=== PATIENT | female | born 1995 | race Caucasian/White ===

== ENCOUNTER 2020-09-24 21:50 | Emergency (ER) | payer OTHER, SELFPAY ==
[2020-09-24 22:15] VITALS: BP 141/93; PULSE 81; RESP 20; TEMP 36.7; O2SAT 98
[2020-09-24] MEDS: SODIUM CHLORIDE 0.9% IV 1,000 ML 999 ML IV CONT (22:45)
[2020-09-24] MEDS: ONDANSETRON INJ 4 MG/2 ML VIAL IV PUSH (22:46)
[2020-09-24] MEDS: KETOROLAC 30 MG/ML VIAL (*BKC) IV PUSH (22:46)
--- NOTE | 2020-09-24 22:55 | ED.DIZZY ---
HPI - Dizziness General Chief Complaint: Dizziness Stated Complaint: dizzy, light headed, nausea, sleepy,upper abd pain Source: patient Mode of arrival: ambulatory Limitations: no limitations History of Present Illness HPI Narrative: this is a 25-year-old female with no known past medical history per dizziness headache nasal congestion with episode of nausea vomiting with suprapubic tenderness with no dysuria no hematuria no flank pain does have some sinus congestion with some some weakness dizziness and no chest pain no audible wheezing does have some achiness that started at about 1 this afternoon. Currently no fever chills. MD elicited complaint: dizziness Onset (ago): hour(s) Timing: gradual onset Severity: moderate Description: sense of movement History of similar symptoms: No Exacerbating factors: nothing Relieving factors: nothing Associated symptoms: nausea, vomiting, chills and other ( Headache) Related Data Allergies Allergy/AdvReac Type Severity Reaction Status Date / Time No Known Allergies Allergy Verified 09/24/20 22:28 Review of Systems Review of Systems: All systems reviewed & are unremarkable except as noted in HPI and below PMFSH Past Medical History Medical History Patient denies medical problems Social History Social History Gender identity (if verbalized by the patient): Female Exam Const: General: no acute distress and alert Orientation/consciousness: patient oriented x3 HENMT: Head: normal to inspection Eyes: Conjunctivae: conjunctivae normal Pupils: Equal, round and reactive pupils present Neck: Neck: normal visual inspection, no lymphadenopathy and no meningeal signs Chest: Chest palpation & inspection: normal inspection of the chest Resp: Effort & Inspection: normal respiratory effort Auscultation: clear to auscultation bilaterally Cardio: Rate: regular rate Rhythm: regular rhythm GI: Auscultation: normal bowel sounds : General: Yes no CVA tenderness Back/Spine/Pelvis: Back: no CVA tenderness Skin: General skin exam: normal color Rashes: no rashes Neuro: General: patient oriented x3 and moves all extremities Extrem: General: normal to inspection Psych: Mental Status: mental status grossly normal Affect: normal affect Course Course Emergency Course: patient receiving IV fluids and IV Zofran and has some improvement in her discomfort. After Vital Signs Vital signs: Vital Signs Temperature 36.7 C 04/01/21 22:15 Pulse Rate 81 09/24/20 22:15 Respiratory Rate 20 09/24/20 22:15 Blood Pressure 141/93 H 09/24/20 22:15 Pulse Oximetry 98 09/24/20 22:15 Temperature 36.7 C 09/24/20 22:15 Pulse Rate 81 09/24/20 22:15 Respiratory Rate 20 09/24/20 22:15 Blood Pressure 141/93 H 09/24/20 22:15 Pulse Oximetry 98 09/24/20 22:15 Critical Care Time Critical Care Time Critical Care Time: No Discharge Plan Discharge Clinical Impression: Gastroenteritis, Acute viral syndrome, Acute hypokalemia Patient Disposition: Home, Self-Care Condition: Stable Instructions: Antibiotic Form, Hypokalemia (ED), Gastroenteritis (ED), Acute Nausea and Vomiting (ED) Additional Instructions: take medicine as prescribed and follow-up with primary care physician for further evaluation and treatment. Prescriptions: New potassium chloride 20 mEq tablet extended release 20 meq PO BID 4 Days Qty: 8 RF: 0 Follow-up/Referrals: Duc,MD Bentley [Primary Care Provider] - Time of Disposition: 23:30
[2020-09-24 22:57] LABS: Add Urine Microscopic? NO; Appearance Urine Clear (Clear); Bilirubin Urine Negative (Negative); Blood Urine Negative (Negative); Color Urine Yellow (Yellow); Glucose Urine UA Negative (Negative); Ketones Urine Negative (Negative); Leukocyte Esterase Ur Negative (Negative); Nitrate Urine Negative (Negative); Protein Urine Negative (Negative); Urobilinogen Urine 0.2 mg/dL (0.2-1.0); pH Urine 5.5 (5.0-8.0)
[2020-09-24 23:01] LABS: Pregnancy On Board Control Positive; Urine Pregnancy Test Negative
[2020-09-24 23:11] LABS: Basophils Absolute Auto 0.03 K/mm3 (0.00-0.10); Basophils Percent Auto 0.4 % (0.0-1.0); Eosinophils Absolute Auto 0.09 K/mm3 (0.02-0.50); Eosinophils Percent Auto 1.3 % (1.0-6.0); Hematocrit 37.2 % (35.0-49.0); Hemoglobin 11.7 g/dL (12.0-15.0); Immature Granulocyte Absolute 0.02 K/mm3 (0.00-0.00); Immature Granulocyte Percent A 0.3 % (0.0-0.0); Lymphocytes Absolute Auto 1.55 K/mm3 (1.10-4.50); Mean Corpuscular HGB Conc 31.5 g/dL (32.0-36.0); Mean Corpuscular Hemoglobin 27.1 pg (27.0-31.0); Mean Corpuscular Volume 86.1 fL (78.0-102.0); Mean Platelet Volume 9.3 fl (9.2-11.8); Monocytes Percent Auto 8.5 % (2.0-11.0); Neutrophils Absolute Auto 4.8 K/mm3 (1.7-7.2); Neutrophils Percent Auto 67.5 % (50.0-70.0); Platelet Count Result 350 K/mm3 (150-420); Red Blood Count 4.32 M/mm3 (4.20-5.40); Red Cell Distribution Width 12.6 % (11.6-14.4); White Blood Count 7.1 K/mm3 (4.8-10.8)
[2020-09-24 23:12] LABS: SARS-CoV-2 Ag Negative (Negative)
[2020-09-24 23:22] LABS: Alanine Aminotransferase 17 U/L (14-59); Albumin Level 3.5 g/dL (3.4-5.0); Alkaline Phosphatase 68 U/L (46-116); Anion Gap 7 mmol/L (8-16); Aspartate Amino Transferase 14 U/L (15-37); Bilirubin,Total 0.4 mg/dL (0.00-1.00); Blood Urea Nitrogen 9 mg/dL (7-18); Calcium 8.2 mg/dL (8.5-10.1); Carbon Dioxide 27 mmol/L (21-32); Chloride 106 mmol/L (98-108); Estimated CRCL calculation 74 ml/min; Estimated Glomerular Filt Rate > 60; Glucose 99 mg/dL (70-99); Osmolality Calculated 288 mOsm/kg (285-295); Sodium 140 mmol/L (136-145); Total Protein 6.6 g/dL (6.4-8.2)
[2020-09-24 23:44] VITALS: BP 107/72; PULSE 52; RESP 20; O2SAT 100
[2020-09-24] MEDS: POTASSIUM CHLORIDE 20 MEQ TABLET 40 MEQ PO (23:45)
--- NOTE | 2020-10-08 22:11 | PC.NURSE ---
09/24/20 NS INFUSED 1000ML AT [id number]
== END 2020-09-24 23:58 | disposition home or self-care (01) ==
PROVIDERS: Emergency Provider Emergency Medicine; PCP Family Medicine
DX: K52.9 Noninfective gastroenteritis and colitis, unspecified (principal); B34.9 Viral infection, unspecified; E87.6 Hypokalemia
CPT/HCPCS: 36415; 80053; 81003; 81025; 85025; 87426; 96361; 96374; 96375; 99283; 99284; A9270; C9803; J1885; J2405; J7030

== ENCOUNTER 2020-10-06 21:26 | Emergency (ER) | payer OTHER, SELFPAY ==
--- NOTE | 2020-10-06 21:38 | ED.DENTAL ---
HPI - Dental/Oral General Chief complaint: Dental/Oral Stated complaint: swelling in face, tooth ache Time Seen by Provider: 10/06/20 21:38 Source: patient Mode of arrival: ambulatory Limitations: no limitations History of Present Illness HPI Narrative: 25-year-old woman comes in today complaining of right jaw swelling that has been present off and on for several weeks. Patient states that she recently took a course of antibiotics for that which improved her symptoms briefly but her symptoms returned. She has had no fever, difficulty swallowing, difficulty breathing, or vomiting. MD Complaint: tooth pain Onset (ago): week(s) Duration: constant Severity: moderate Relieving factors: nothing Associated symptoms: gum swelling and pain with swallowing Treatment prior to arrival: oral analgesic Related Data Home Medications Medication Instructions Recorded Confirmed citalopram 10 mg PO DAILY 10/06/20 10/06/20 ferrous sulfate 325 mg PO BID 10/06/20 10/06/20 Allergies Allergy/AdvReac Type Severity Reaction Status Date / Time No Known Allergies Allergy Verified 10/06/20 21:45 Review of Systems Review of Systems: All systems reviewed & are unremarkable except as noted in HPI and below Constitutional: Constitutional: Denies chills and Denies fever(s) ENT: Denies dysphagia, Denies nasal congestion and Denies sore throat Cardiovascular: Cardiovascular: Denies chest pain and Denies radiating jaw, neck or arm pain Respiratory: Respiratory: Denies cough and Denies dyspnea Gastrointestinal: Gastrointestinal: Denies nausea and Denies vomiting Neurologic: Denies vertigo, Denies dizziness and Denies syncope Hematologic/Lymphatic: Hematologic/Lymphatic: Denies easy bleeding and Denies easy bruising Allergic/Immunologic: Allergic/Immunologic: Denies lip swelling, Denies throat swelling and Denies tongue swelling PMFSH Past Medical History Medical History Patient denies medical problems Social History Social History Gender identity (if verbalized by the patient): Female Exam Const: General: healthy appearing, no acute distress and alert Orientation/consciousness: patient oriented x3 Limitations: no limitations HENMT: Head: normal to inspection Ears: external ears normal, TM's normal bilaterally and EAC's normal General nose exam: Normal nares present Mouth: Yes moist mucous membranes Throat: posterior oropharynx normal Other: Swelling along the right jawline. No overlying erythema or fluctuance. Mildly tender submandibular adenopathy with minimal swelling in the neck. Eyes: Conjunctivae: conjunctivae normal Pupils: Equal, round and reactive pupils present EOM: EOMs intact bilaterally Resp: Effort & Inspection: normal respiratory effort and not labored Auscultation: clear to auscultation bilaterally, no rales, no rhonchi and no wheezes Cardio: Rate: regular rate Rhythm: regular rhythm Heart sounds: no murmurs Skin: General skin exam: normal color, no jaundice and no pallor Rashes: no rashes Neuro: General: patient oriented x3, moves all extremities, no focal motor deficits and CN's II-XI intact bilaterally Speech: normal speech Gait exam (Neuro): Normal gait present Extrem: General: normal to inspection and no clubbing, cyanosis or edema Psych: Appearance: grossly normal and well kempt Mental Status: mental status grossly normal Affect: normal affect Attitude: cooperative Thought content: Yes Normal thought content present Discharge Plan Discharge Clinical Impression: Dental abscess Patient Disposition: Home, Self-Care Condition: Stable Instructions: Antibiotic Form, Dental Abscess (ED) Additional Instructions: Follow-up with your dentist as scheduled. If you are unable to swallow medications or liquids, have high fever, or difficulty breathing, Return to the emerge
[2020-10-06 21:40] VITALS: BP 104/67; PULSE 86; RESP 20; TEMP 36.8; O2SAT 99
[2020-10-06] MEDS: CLINDAMYCIN HCL 150 MG CAP 300 MG PO (21:55)
== END 2020-10-06 22:01 | disposition home or self-care (01) ==
PROVIDERS: Emergency Provider Emergency Medicine; PCP Family Medicine
DX: K04.7 Periapical abscess without sinus (principal)
CPT/HCPCS: 99283; A9270

== ENCOUNTER 2020-11-27 11:10 | Emergency (ER) | payer OTHER, SELFPAY ==
--- NOTE | ~2020-11-27 | CT_ITS ---
EXAMINATION: CT abdomen pelvis w con EXAM DATE: 11/27/2020 13:46 INDICATION: Suprapubic pain, LLQ pain chronic, worse x3days. TECHNIQUE: Spiral CT of the abdomen and pelvis was performed following intravenous injection of 100 m L Omnipaque 350. Axial, coronal and sagittal images of the abdomen and pelvis were reviewed. The do se-length product (DLP) for this examination was 271.79 mGy-cm. The exposure was tailored according to patient size (auto mA exposure control), and iterative reconstruction (ASIR) was used as additiona l dose reduction technique. There is no prior study for comparison. FINDINGS: The liver, spleen, adrenal glands and pancreas are unremarkable. Gallbladder is unremarkab le. No biliary obstruction. Portal and splenic veins are patent. Kidneys enhance symmetrically. T here is no hydronephrosis. The uterus and ovaries are unremarkable, no adnexal mass. The bladder i s unremarkable. There is no retroperitoneal or pelvic lymphadenopathy. The appendix is not positively visualized. There is no pericecal inflammatory change to suggest appe ndicitis. The stomach and small bowel are unremarkable. There is expected amount of colonic stool. No free intraperitoneal gas. The heart is normal in size. There are no pericardial or pleural e ffusions. The lung bases are unremarkable. The bones are unremarkable. IMPRESSION: No acute intra-abdominal findings. Reviewed, dictated and finalized at location B.
--- NOTE | 2020-11-27 11:27 | ED.ABDPAIN ---
HPI - Abdominal Pain General Chief Complaint: Abdominal Pain Stated Complaint: abd pain Time Seen by Provider: 11/27/20 11:27 Source: patient Mode of arrival: ambulatory Limitations: no limitations History of Present Illness HPI narrative: 25-year-old woman comes in today complaining of worsening abdominal pain over the past few days. Patient states that she has had abdominal pain over last 3 years. She saw her primary care doctor this morning was concerned about the increase in her pain and wanted to do a CT scan however there was concerned that her insurance would cover it so her PCP sent her to the emergency department. she states that she has abnormal uterine bleeding flow cannot tell when her last period was. She has had no fever, chills, nausea, vomiting, diarrhea, recent illness, blood in her stools, anorexia, hematuria, dysuria, or vaginal discharge. She denies prior abdominal surgeries. MD elicited complaint: abdominal pain Onset (ago): day(s) (3) Pain Consistency: constant Location: LLQ Severity: moderate Quality: sharp Radiation: RLQ Migration to: no migration Exacerbating factors: nothing Relieving factors: nothing Treatments prior to arrival: NSAIDs and other (BCP started 5 dyas ago) Related Data Home Medications Medication Instructions Recorded Confirmed ferrous sulfate 325 mg PO BID 10/06/20 11/27/20 docusate sodium [Colace] 100 mg PO DAILY 11/27/20 11/27/20 hydroxyzine HCl 25 mg PO HS PRN 11/27/20 11/27/20 ibuprofen 800 mg PO TID PRN 11/27/20 11/27/20 norethindrone-e.estradiol-iron 1 tablet PO DAILY 11/27/20 11/27/20 [07/15 (28)] paroxetine HCl 10 mg PO DAILY 11/27/20 11/27/20 Allergies Allergy/AdvReac Type Severity Reaction Status Date / Time No Known Allergies Allergy Verified 10/06/20 21:45 Review of Systems Review of Systems: All systems reviewed & are unremarkable except as noted in HPI and below Constitutional: Constitutional: Denies chills and Denies fever(s) Eyes: Eyes: Denies change in vision and Denies photophobia ENT: Denies nasal congestion and Denies sore throat Cardiovascular: Cardiovascular: Denies chest pain and Denies radiating jaw, neck or arm pain Respiratory: Respiratory: Denies cough and Denies dyspnea Gastrointestinal: Gastrointestinal: Denies abdominal pain, Denies diarrhea, Denies nausea and Denies vomiting Genitourinary: Genitourinary: Denies hematuria, Denies nocturia and Denies dysuria Musculoskeletal: Musculoskeletal: Denies back pain, Denies arthralgias and Denies joint swelling Integumentary/Breasts: Skin/Breast: Denies pruritus, Denies erythema and Denies rash Neurologic: Denies vertigo, Denies dizziness and Denies syncope Hematologic/Lymphatic: Hematologic/Lymphatic: Denies easy bleeding and Denies easy bruising Allergic/Immunologic: Allergic/Immunologic: Denies lip swelling and Denies throat swelling PMF Past Medical History Medical History Patient denies medical problems Social History Social History (Updated 11/27/20 @ 14:18 by Dimas Ruiz MD) Smoking status: Never smoker Alcohol intake: never Substance use: never Living arrangements: with family Gender identity (if verbalized by the patient): Female Exam Const: General: healthy appearing and alert Orientation/consciousness: patient oriented x3 Limitations: no limitations Other: [id number] acute distress. Eyes: Conjunctivae: conjunctivae normal Pupils: Equal, round and reactive pupils present EOM: EOMs intact bilaterally Resp: Effort & Inspection: normal respiratory effort and not labored Auscultation: clear to auscultation bilaterally, no rales, no rhonchi and no wheezes Cardio: Rate: regular rate Rhythm: regular rhythm Heart sounds: no murmurs GI: GI Palp: Yes Soft to palpation, Yes Tenderness to palpation present (GI) (LLQ, RLQ), No Rigid due to palpation and No Palpable mass prese
[2020-11-27 11:29] VITALS: BP 130/79; PULSE 73; RESP 18; TEMP 37.1; O2SAT 98
[2020-11-27] MEDS: SODIUM CHLORIDE 0.9% IV 500 ML 999 ML IV CONT (11:49)
--- NOTE | 2020-11-27 11:50 | PC.NURSE ---
Pt states she does not have a ride home and is unable to find one at this time so dilaudid withheld. pt denies nausea and would also like to wait on the nausea medication as well. pt advised to notified staff if she changes her mind. edp aware.
[2020-11-27 11:53] LABS: Add Urine Microscopic? NO; Appearance Urine Clear (Clear); Basophils Absolute Auto 0.03 K/mm3 (0.00-0.10); Basophils Percent Auto 0.6 % (0.0-1.0); Bilirubin Urine Negative (Negative); Blood Urine Negative (Negative); Color Urine Yellow (Yellow); Eosinophils Absolute Auto 0.11 K/mm3 (0.02-0.50); Eosinophils Percent Auto 2.3 % (1.0-6.0); Glucose Urine UA Negative (Negative); Hematocrit 40.1 % (35.0-49.0); Hemoglobin 12.8 g/dL (12.0-15.0); Immature Granulocyte Absolute 0.01 K/mm3 (0.00-0.00); Immature Granulocyte Percent A 0.2 % (0.0-0.0); Ketones Urine Negative (Negative); Leukocyte Esterase Ur Negative LEU/UL (Negative); Lymphocytes Absolute Auto 2.28 K/mm3 (1.10-4.50); Lymphocytes Percent Auto 47.9 % (18.0-42.0); Mean Corpuscular HGB Conc 31.9 g/dL (32.0-36.0); Mean Corpuscular Hemoglobin 27.5 pg (27.0-31.0); Mean Corpuscular Volume 86.2 fL (78.0-102.0); Mean Platelet Volume 9.3 fl (9.2-11.8); Monocytes Absolute Auto 0.55 K/mm3 (0.10-0.90); Monocytes Percent Auto 11.6 % (2.0-11.0); Neutrophils Absolute Auto 1.8 K/mm3 (1.7-7.2); Neutrophils Percent Auto 37.4 % (50.0-70.0); Nitrate Urine Negative (Negative); Platelet Count Result 365 K/mm3 (150-420); Protein Urine Negative (Negative); Red Blood Count 4.65 M/mm3 (4.20-5.40); Red Cell Distribution Width 13.2 % (11.6-14.4); Urobilinogen Urine 0.2 mg/dL (0.2-1.0); White Blood Count 4.8 K/mm3 (4.8-10.8)
[2020-11-27 11:58] LABS: Pregnancy On Board Control Positive; Urine Pregnancy Test Negative
[2020-11-27 12:11] LABS: Lactic Acid Reflex 1.3 mmol/L (0.4-2.0)
[2020-11-27 12:15] LABS: Alanine Aminotransferase 21 U/L (14-59); Albumin Level 3.7 g/dL (3.4-5.0); Alkaline Phosphatase 80 U/L (46-116); Anion Gap 9 mmol/L (8-16); Aspartate Amino Transferase 14 U/L (15-37); Bilirubin,Total 0.4 mg/dL (0.00-1.00); Blood Urea Nitrogen 8 mg/dL (7-18); Calcium 8.4 mg/dL (8.5-10.1); Carbon Dioxide 27 mmol/L (21-32); Chloride 104 mmol/L (98-108); Estimated CRCL calculation 86 ml/min; Estimated Glomerular Filt Rate > 60; Glucose 80 mg/dL (70-99); Lipase 92 U/L (73-393); Osmolality Calculated 287 mOsm/kg (285-295); Potassium 3.8 mmol/L (3.5-5.1); Sodium 140 mmol/L (136-145); Total Protein 7.1 g/dL (6.4-8.2)
--- NOTE | 2020-11-27 13:30 | PC.NURSE ---
pt to ct via wheelchair.
--- NOTE | 2020-11-27 14:00 | PC.NURSE ---
6 SUTURES PLACED BY ERP. NONSTICK TELFA AND COBAN DRESSING PLACED ON.
[2020-11-27 14:04] VITALS: BP 111/78; PULSE 87; RESP 16; O2SAT 97
== END 2020-11-27 14:30 | disposition home or self-care (01) ==
PROVIDERS: Emergency Provider Emergency Medicine; PCP Family Medicine
DX: R10.30 Lower abdominal pain, unspecified (principal)
CPT/HCPCS: 36415; 74177; 80053; 81003; 81025; 83605; 83690; 85025; 96360; 99283; 99284; J7040; Q9967

== ENCOUNTER 2021-02-06 17:20 | Emergency (ER) | payer OTHER, SELFPAY ==
--- NOTE | ~2021-02-06 | CT_ITS ---
EXAMINATION: CT brain wo con DATE: 02/06/2021 18:28 INDICATION: Headache, nausea and dizziness after being hit in the head with a hockey puck. TECHNIQUE: Computed tomography (CT) of the head was performed without intravenous contrast. Sagittal and coronal reconstructions were performed. The mA was adjusted according to patient size. Iterative reconstruction technique was employed. The dose-length product was 605.33 mGy-cm. COMPARISON: None FINDINGS: No fracture. No acute intracranial hemorrhage, acute infarction or abnormal extra axial fluid collect ion. Ventricles are normal and symmetric. No mass/mass effect. The orbits, paranasal sinuses and mast oid air cells are normal. IMPRESSION: 1. Normal brain. No fracture or acute intracranial process. Reviewed, dictated and finalized at location A.
[2021-02-06 17:30] VITALS: BP 120/80; PULSE 83; RESP 18; TEMP 37; O2SAT 98
--- NOTE | 2021-02-06 17:50 | ED.HEATRA ---
HPI - Head Injury General Chief complaint: Headache Stated complaint: Headache was hit in head by hockey puck Time Seen by Provider: 02/06/21 17:50 Source: patient Mode of arrival: ambulatory Limitations: no limitations History of Present Illness HPI Narrative: 25-year-old woman comes in today complaining of head pain, dizziness like room spinning, photophobia nausea that started about 3 days ago. She states the pain started after her 2-year-old son threw a hockey puck inhibitor in the right forehead. She states that the pain is like pressure is worse when standing and better when laying down. She has been taking Tylenol and ibuprofen without any improvement of her headache. She has had no vomiting. She had a closed head injury approximately 1 year ago that resulted in a concussion. She states she has a history of headaches that improved the last August after she got a special ear piercing. Complaint: head injury Onset (ago): day(s) (3) Mechanism of Injury: other Place: home Loss of Consciousness: no Location of injury: frontal Severity: severe Quality: other (Pressure) Radiation: none Other Injuries: none Associated symptoms: nausea Related Data Home Medications Medication Instructions Recorded Confirmed ferrous sulfate 325 mg PO BID 10/06/20 02/06/21 hydroxyzine HCl 25 mg PO HS PRN 11/27/20 02/06/21 ibuprofen 800 mg PO TID PRN 11/27/20 02/06/21 norethindrone-e.estradiol-iron 1 tablet PO DAILY 11/27/20 02/06/21 [07/15 (28)] paroxetine HCl 10 mg PO DAILY 11/27/20 02/06/21 Allergies Allergy/AdvReac Type Severity Reaction Status Date / Time No Known Allergies Allergy Verified 10/06/20 21:45 Review of Systems Review of Systems: All systems reviewed & are unremarkable except as noted in HPI and below Constitutional: Constitutional: Denies chills and Denies fever(s) Eyes: Eyes: Denies change in vision and Reports photophobia ENT: Denies nasal congestion and Denies sore throat Cardiovascular: Cardiovascular: Denies chest pain and Denies radiating jaw, neck or arm pain Respiratory: Respiratory: Denies cough and Denies dyspnea Gastrointestinal: Gastrointestinal: Denies abdominal pain, Reports nausea and Denies vomiting Genitourinary: Genitourinary: Denies nocturia and Denies dysuria Musculoskeletal: Musculoskeletal: Denies back pain, Denies arthralgias and Denies joint swelling Integumentary/Breasts: Skin/Breast: Denies pruritus, Denies erythema and Denies rash Neurologic: Reports as per HPI, Reports vertigo, Denies dizziness, Denies syncope and Denies weakness Hematologic/Lymphatic: Hematologic/Lymphatic: Denies easy bleeding and Denies easy bruising Allergic/Immunologic: Allergic/Immunologic: Denies lip swelling and Denies throat swelling [facility] Past Medical History Medical History Patient denies medical problems Social History Social History Smoking status: Never smoker Alcohol intake: never Substance use: never Gender identity (if verbalized by the patient): Female Exam Const: General: healthy appearing and alert Orientation/consciousness: patient oriented x3 Limitations: no limitations Other: Mild acute distress. HENMT: Head: normal to inspection Ears: external ears normal, TM's normal bilaterally and EAC's normal General nose exam: Normal nares present Face and sinus: normal facial exam Mouth: Yes moist mucous membranes Throat: posterior oropharynx normal Eyes: Conjunctivae: conjunctivae normal Pupils: Equal, round and reactive pupils present EOM: EOMs intact bilaterally Direct Ophthalmoscopy: photophobia Neck: Neck: not normal to visual inspection and lymphadenopathy noted Resp: Effort & Inspection: normal respiratory effort and not labored Auscultation: clear to auscultation bilaterally, no rales, no rhonchi and no wheezes Cardio: Rate: regular r
[2021-02-06 18:00] LABS: Pregnancy On Board Control Positive; Urine Pregnancy Test Negative
[2021-02-06] MEDS: PROMETHAZINE HCL 25 MG/ML AMPUL IM (18:15)
[2021-02-06] MEDS: SODIUM CHLORIDE 0.9% IV 1,000 ML 999 ML IV CONT (18:30)
[2021-02-06] MEDS: KETOROLAC 30 MG/ML VIAL (*BKC) IV PUSH (19:05)
[2021-02-06 19:25] VITALS: BP 106/77; PULSE 73; RESP 20; TEMP 37; O2SAT 98
== END 2021-02-06 19:45 | disposition home or self-care (01) ==
PROVIDERS: Emergency Provider Emergency Medicine; PCP Family Medicine
DX: R51.9 Headache, unspecified (principal); S09.90XA Unspecified injury of head, initial encounter; W20.8XXA Other cause of strike by thrown, projected or falling object, initial encounter
CPT/HCPCS: 70450; 81025; 96361; 96372; 96374; 99283; 99284; J1885; J2550; J7030

== ENCOUNTER 2021-06-11 21:06 | Emergency (ER) | payer OTHER, SELFPAY ==
--- NOTE | 2021-06-11 21:33 | ED.ABDPAIN ---
HPI - Abdominal Pain General Chief Complaint: Wound/Laceration Stated Complaint: oozing from belly button Time Seen by Provider: 06/11/21 21:33 Source: patient Mode of arrival: ambulatory Limitations: no limitations History of Present Illness HPI narrative: 26-year-old woman comes in today complaining of yellow drainage from her umbilical wound and abdominal pain since a laparoscopy to identify endometriosis 2 days ago. It was done at [facility]– [place][Note 2] by Dr. San ([employer] vice president sales). patient states she has not had a bowel movement since the surgery. She denies fever, nausea, vomiting, dysuria, hematuria, frequent urination, and blood in her stools. Drainage from her wound was thin and yellow. MD elicited complaint: abdominal pain Onset (ago): day(s) (2) Pain Consistency: intermittent Location: periumbilical Severity: moderate Quality: sharp Radiation: none Migration to: no migration Exacerbating factors: nothing Relieving factors: nothing Context: confirms recent surgery/procedure Associated symptoms: denies other symptoms Treatments prior to arrival: NSAIDs and prescription analgesics Related Data Home Medications Medication Instructions Recorded Confirmed ferrous sulfate 325 mg PO BID 10/06/20 06/11/21 acetaminophen [Pain Reliever Extra 500 mg PO Q6-8H 06/11/21 06/11/21 Strength] ketorolac 10 mg PO PRN PRN 06/11/21 06/11/21 paroxetine HCl 30 mg PO DAILY 06/11/21 06/11/21 Allergies Allergy/AdvReac Type Severity Reaction Status Date / Time No Known Allergies Allergy Verified 06/11/21 21:33 Review of Systems Review of Systems: All systems reviewed & are unremarkable except as noted in HPI and below Constitutional: Constitutional: Denies chills and Denies fever(s) Respiratory: Respiratory: Denies cough and Denies dyspnea Gastrointestinal: Gastrointestinal: Denies abdominal pain, Denies diarrhea, Denies nausea and Denies vomiting Genitourinary: Genitourinary: Denies hematuria, Denies nocturia and Denies dysuria Musculoskeletal: Musculoskeletal: Denies back pain, Denies arthralgias and Denies joint swelling Integumentary/Breasts: Skin/Breast: Denies pruritus, Denies erythema and Denies rash Neurologic: Denies vertigo, Denies dizziness and Denies syncope Hematologic/Lymphatic: Hematologic/Lymphatic: Denies easy bleeding and Denies easy bruising Allergic/Immunologic: Allergic/Immunologic: Denies lip swelling and Denies throat swelling PMFSH Past Medical History Medical History Patient denies medical problems Social History Social History Smoking status: Never smoker Alcohol intake: never Substance use: never Gender identity (if verbalized by the patient): Female Exam Const: General: healthy appearing, no acute distress and alert Orientation/consciousness: patient oriented x3 Eyes: Conjunctivae: conjunctivae normal Pupils: Equal, round and reactive pupils present EOM: EOMs intact bilaterally Resp: Effort & Inspection: normal respiratory effort and not labored Auscultation: clear to auscultation bilaterally, no rales, no rhonchi and no wheezes Cardio: Rate: regular rate Rhythm: regular rhythm Heart sounds: no murmurs GI: GI Palp: Yes Soft to palpation, Yes Tenderness to palpation present (GI) ( Mild, diffuse), No Guarding due to palpation present (GI) and No Palpable mass present Auscultation: normal bowel sounds Other: Abdominal wounds show no drainage, erythema, induration or swelling. Skin: General skin exam: normal color, no jaundice and no pallor Rashes: no rashes Neuro: General: patient oriented x3, moves all extremities, no focal motor deficits and CN's II-XI intact bilaterally Speech: normal speech Gait exam (Neuro): Normal gait present Extrem: General: normal to inspection and no clubbing, cyanosis or edema Psych: Appearance: grossly normal and well martin
[2021-06-11 21:43] VITALS: BP 111/69; PULSE 74; RESP 16; TEMP 36.4; O2SAT 96
[2021-06-11 22:03] LABS: Basophils Absolute Auto 0.06 K/mm3 (0.00-0.10); Basophils Percent Auto 0.8 % (0.0-1.0); Eosinophils Absolute Auto 0.11 K/mm3 (0.02-0.50); Eosinophils Percent Auto 1.4 % (1.0-6.0); Hematocrit 42.3 % (35.0-49.0); Hemoglobin 13.6 g/dL (12.0-15.0); Immature Granulocyte Absolute 0.02 K/mm3 (0.00-0.00); Immature Granulocyte Percent A 0.3 % (0.0-0.0); Lymphocytes Absolute Auto 2.89 K/mm3 (1.10-4.50); Lymphocytes Percent Auto 37.7 % (18.0-42.0); Mean Corpuscular HGB Conc 32.2 g/dL (32.0-36.0); Mean Corpuscular Hemoglobin 29.8 pg (27.0-31.0); Mean Corpuscular Volume 92.8 fL (78.0-102.0); Mean Platelet Volume 9.1 fl (9.2-11.8); Monocytes Absolute Auto 0.48 K/mm3 (0.10-0.90); Monocytes Percent Auto 6.3 % (2.0-11.0); Neutrophils Absolute Auto 4.1 K/mm3 (1.7-7.2); Neutrophils Percent Auto 53.5 % (50.0-70.0); Platelet Count Result 380 K/mm3 (150-420); Red Blood Count 4.56 M/mm3 (4.20-5.40); Red Cell Distribution Width 12.4 % (11.6-14.4); White Blood Count 7.7 K/mm3 (4.8-10.8)
[2021-06-11 22:18] LABS: Alanine Aminotransferase 18 U/L (14-59); Albumin Level 3.5 g/dL (3.4-5.0); Alkaline Phosphatase 71 U/L (46-116); Anion Gap 8 mmol/L (8-16); Aspartate Amino Transferase 12 U/L (15-37); Bilirubin,Total 0.2 mg/dL (0.00-1.00); Blood Urea Nitrogen 12 mg/dL (7-18); Calcium 8.6 mg/dL (8.5-10.1); Carbon Dioxide 28 mmol/L (21-32); Chloride 103 mmol/L (98-108); Estimated CRCL calculation 77 ml/min; Estimated Glomerular Filt Rate > 60; Glucose 123 mg/dL (70-99); Osmolality Calculated 288 mOsm/kg (285-295); Potassium 3.7 mmol/L (3.5-5.1); Sodium 139 mmol/L (136-145); Total Protein 7.2 g/dL (6.4-8.2)
[2021-06-11 22:23] LABS: Lactic Acid Reflex 2.5 mmol/L (0.4-2.0)
[2021-06-11 23:03] LABS: Add Urine Microscopic? YES
[2021-06-11 23:05] LABS: Mucus Urine Moderate /lpf
[2021-06-11 23:10] LABS: Pregnancy On Board Control Positive; Urine Pregnancy Test Negative
[2021-06-11 23:11] LABS: Appearance Urine Clear (Clear); Color Urine Yellow (Yellow); Specific Grav Ur 1.025 (1.010-1.020)
[2021-06-11 23:12] LABS: Blood Urine 1+ (Negative); Glucose Urine UA Negative (Negative); Ketones Urine Negative (Negative); Protein Urine Negative (Negative)
[2021-06-11 23:13] LABS: Bilirubin Urine Negative (Negative); Leukocyte Esterase Ur Negative (Negative); Nitrate Urine Negative (Negative); Urobilinogen Urine 0.2 mg/dL (0.2-1.0)
[2021-06-11 23:14] VITALS: BP 121/78; PULSE 66; RESP 16; O2SAT 100
[2021-06-11 23:14] LABS: Bacteria Urine None seen /hpf; Squamous Epithelial Cell Urine Few /hpf (Few); WBC Urine None seen /hpf (0-3)
[2021-06-11 23:16] VITALS: TEMP 36.8
[2021-06-12 00:59] LABS: Reflex Lactic Acid Yes or No Add Lactic
== END 2021-06-11 23:23 | disposition home or self-care (01) ==
PROVIDERS: Emergency Provider Emergency Medicine; PCP Family Medicine
DX: Z98.890 Other specified postprocedural states (principal); R10.33 Periumbilical pain
CPT/HCPCS: 36415; 80053; 81001; 81025; 83605; 85025; 99283

== ENCOUNTER 2021-08-22 18:09 | Emergency (ER) | payer OTHER, SELFPAY ==
--- NOTE | 2021-08-22 18:22 | ED.NAVMDI ---
HPI - Nausea/Vomiting/Diarrhea General Chief complaint: Nausea/Vomiting/Diarrhea Stated complaint: dehydration/6wks Time Seen by Provider: 08/22/21 18:20 Source: patient and RN notes reviewed Mode of arrival: ambulatory Limitations: no limitations History of Present Illness HPI Narrative: patient found out she was on . She started having nausea vomiting 4 days ago. She is 3 para 2 MD elicited complaint: nausea and vomiting Onset (ago): day(s) (4) Description of vomiting: bilious Associated nausea: Yes Associated abdominal pain: No Exacerbating factors: eating Relieving factors: none Context: other () Associated symptoms: denies other symptoms Treatment prior to arrival: none Related Data Home Medications Medication Instructions Recorded Confirmed ferrous sulfate 325 mg PO BID 10/06/20 06/11/21 acetaminophen [Pain Reliever Extra 500 mg PO Q6-8H 06/11/21 06/11/21 Strength] ketorolac 10 mg PO PRN PRN 06/11/21 06/11/21 paroxetine HCl 30 mg PO DAILY 06/11/21 06/11/21 Allergies Allergy/AdvReac Type Severity Reaction Status Date / Time No Known Allergies Allergy Verified 06/11/21 21:33 Review of Systems Review of Systems: All systems reviewed & are unremarkable except as noted in HPI and below Genitourinary: Genitourinary: Denies nocturia and Reports dysuria (buring) PMFSH Past Medical History Medical History (Updated 08/22/21 @ 20:02 by Ivan Gant MD) Patient denies medical problems Surgical History Surgical History (Updated 08/22/21 @ 18:42 by Ivan Gant MD) H/O laparoscopy for possible endometriosis none found Social History Social History Smoking status: Never smoker Alcohol intake: never Substance use: never Gender identity (if verbalized by the patient): Female Exam Const: General: healthy appearing, no acute distress and alert Nutritional Appearance: well nourished Orientation/consciousness: patient oriented x3 Other: female nurse in room during examination. HENMT: Head: normal to inspection Ears: external ears normal Eyes: Cornea: corneas normal Pupils: Equal, round and reactive pupils present EOM: EOMs intact bilaterally Neck: Neck: normal visual inspection Resp: Effort & Inspection: normal respiratory effort Auscultation: clear to auscultation bilaterally Cardio: Rate: regular rate Rhythm: regular rhythm GI: GI Palp: Yes Soft to palpation and No Tenderness to palpation present (GI) Auscultation: normal bowel sounds : General: Yes no CVA tenderness Back/Spine/Pelvis: Cervical Spine: cervical ROM normal Thoracic/Lumbar Spine: thoraco-lumbar ROM normal Skin: General skin exam: normal color Neuro: General: patient oriented x3, moves all extremities and no focal motor deficits Speech: normal speech Gait exam (Neuro): Normal gait present Extrem: General: normal to inspection and no clubbing, cyanosis or edema Psych: Appearance: grossly normal Mental Status: mental status grossly normal Affect: normal affect Attitude: cooperative Thought content: Yes Normal thought content present Course Vital Signs Vital signs: Vital Signs Temperature 36.6 C 08/22/21 18:25 Pulse Rate 80 08/22/21 18:25 Respiratory Rate 16 08/22/21 18:25 Blood Pressure 103/73 08/22/21 18:25 Pulse Oximetry 100 08/22/21 18:25 Temperature 36.6 C 08/22/21 18:25 Pulse Rate 80 08/22/21 18:25 Respiratory Rate 16 08/22/21 18:25 Blood Pressure 103/73 08/22/21 18:25 Pulse Oximetry 100 08/22/21 18:25 MDM - Nausea/Vomiting/Diarrhea Lab Data Labs: Lab Results 08/22/21 Range/Units 18:40 Urine Color Light yellow (Yellow) Urine Appearance Clear (Clear) Urine pH 6.0 (5.0-8.0) Ur Specific Dana >= 1.030 H (1.010-1.020) Urine Protein Negative (Negative) Urine Glucose (UA) Negative (Negative) Urine Ketones Tra
[2021-08-22 18:25] VITALS: BP 103/73; PULSE 80; RESP 16; TEMP 36.6; O2SAT 100
--- NOTE | 2021-08-22 18:34 | PC.NURSE ---
Assisted Dr. Gant with exam.
[2021-08-22] MEDS: METOCLOPRAMIDE HCL INJ 10 MG/2 ML VIAL IV PUSH (18:44)
[2021-08-22] MEDS: SODIUM CHLORIDE 0.9% IV 1,000 ML 999 ML IV CONT (18:44)
--- NOTE | 2021-08-22 18:51 | PC.NURSE ---
Urine walked to lab.
[2021-08-22 18:54] LABS: Add Urine Microscopic? YES; Appearance Urine Clear (Clear); Bilirubin Urine Negative (Negative); Blood Urine Negative (Negative); Color Urine Light Yellow (Yellow); Glucose Urine UA Negative (Negative); Ketones Urine Trace (Negative); Leukocyte Esterase Ur Negative LEU/UL (Negative); Nitrate Urine Negative (Negative); Protein Urine Negative (Negative); Specific Grav Ur >= 1.030 (1.010-1.020); Urobilinogen Urine 0.2 mg/dL (0.2-1.0)
--- NOTE | 2021-08-22 19:09 | PC.NURSE ---
Report given to ROCIO Recinos
[2021-08-22 19:12] LABS: Bacteria Urine 2+ /hpf; Mucus Urine Heavy /lpf; Squamous Epithelial Cell Urine Occasional /hpf (Few)
[2021-08-22 20:14] VITALS: BP 109/70; PULSE 86; RESP 16; O2SAT 99
== END 2021-08-22 20:15 | disposition home or self-care (01) ==
PROVIDERS: Emergency Provider Emergency Medicine; PCP Family Medicine
DX: O21.0 Mild hyperemesis gravidarum (principal)
CPT/HCPCS: 81001; 96361; 96374; 99284; J2765; J7030

== ENCOUNTER 2021-10-26 07:37 | Outpatient (CLI) | payer OTHER, SELFPAY ==
--- NOTE | ~2021-10-26 | US_ITS ---
EXAMINATION: US OB transvaginal DATE: 10/26/2021 08:20 INDICATION: Concern for retained products after miscarriage TECHNIQUE: Real-time pelvic transabdominal and transvaginal ultrasound was performed. COMPARISON: None. FINDINGS: The uterus measures 7.2 x 5.1 x 6.4 cm. There are two small fluid collections in the endom etrial canal which measure up to 9 mm. No pole is identified. The right ovary measures 4.5 x 2. 1 x 2.1 cm. The left ovary measures 2.5 x 1.1 x 1.5 cm. There is normal vascular flow in the ovaries. There is no free fluid in the pelvis. IMPRESSION: 1. Two small fluid collections in the endometrial canal without visible pole. Finding could ref lect a gestational sac remnant. Reviewed, dictated and finalized at location A. IMPRESSION: 1. Two small fluid collections in the endometrial canal without visible p ole. Finding could reflect a gestational sac remnant.
== END 2021-10-26 07:38 | disposition home or self-care (01) ==
LOC: CHSIMG 07:38
PROVIDERS: PCP Family Medicine; Visit Provider Family Medicine
DX: Z98.890 Other specified postprocedural states (principal)
CPT/HCPCS: 76817

== ENCOUNTER 2021-11-11 08:56 | Emergency (ER) | payer OTHER, SELFPAY ==
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
--- NOTE | ~2021-11-11 | XR_ITS ---
EXAMINATION: XR tibia fibula RT 2V INDICATION: Right leg pain TECHNIQUE: Two views of the right tibia and fibula are obtained. COMPARISON: None available FINDINGS: There is no fracture, dislocation, or subluxation. The bones, soft tissues, and joint space s are normal. IMPRESSION: 1. No acute osseous abnormality. Reviewed, dictated and finalized at location A.
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
--- NOTE | ~2021-11-11 | XR_ITS ---
EXAMINATION: XR tibia fibula LT 2V INDICATION: Left leg pain TECHNIQUE: Two views of the left tibia and fibula are obtained. COMPARISON: None available FINDINGS: There is no fracture, dislocation, or subluxation. The bones and joint spaces are normal. T here is anterior soft tissue swelling overlying the proximal tibia. IMPRESSION: 1. Anterior soft tissue swelling overlying the proximal tibia without acute osseous abnormality. Reviewed, dictated and finalized at location A. IMPRESSION: 1. Anterior soft tissue swelling overlying the proximal tibia without acute oss eous abnormality.
[2021-11-11 08:59] VITALS: BP 123/88; PULSE 89; RESP 19; TEMP 36.2; O2SAT 99
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
[2021-11-11 09:40] LABS: Basophils Percent Auto 0.6 % (0.2-1.2); Eosinophils Absolute Auto 0.2 K/mm3 (0-0.3); Eosinophils Percent Auto 3.2 % (0-4.4); Hematocrit 42.9 % (37.0-47.0); Immature Granulocyte Absolute 0.04 K/mm3 (0.00-0.031); Immature Granulocyte Percent A 0.6 % (0-0.5); Lymphocytes Percent Auto 19.9 % (18.3-44.2); Mean Corpuscular HGB Conc 32.6 g/dl (32-36); Mean Corpuscular Hemoglobin 30.2 pg (26-34); Mean Corpuscular Volume 92.7 fl (80-100); Mean Platelet Volume 9.3 fl (7.4-10.4); Monocytes Absolute Auto 0.4 K/mm3 (0.1-0.6); Monocytes Percent Auto 6.1 % (2.6-8.5); Neutrophils Absolute Auto 4.5 K/mm3 (1.3-6.7); Neutrophils Percent Auto 69.6 % (45.5-73.1); Platelet Count Result 270 k/mm3 (150-375); Red Blood Count 4.63 M/mm3 (4.2-5.4); Red Cell Distribution Width 12.5 % (11.5-14.5); White Blood Count 6.5 K/mm3 (4.5-10.0)
[2021-11-11 09:51] LABS: Alanine Aminotransferase 15 U/L (6-35); Albumin Level 3.7 g/dL (3.5-5.1); Alkaline Phosphatase 73 U/L (38-126); Anion Gap 7 mmol/L (8-16); Aspartate Amino Transferase 25 U/L (14-36); Bilirubin,Total 0.3 mg/dL (0.2-1.3); Blood Urea Nitrogen 8 mg/dL (7-17); Calcium 8.6 mg/dL (8.4-10.2); Carbon Dioxide 28 mmol/L (22-30); Chloride 105 mmol/L (98-107); Estimated CRCL calculation 92 ml/min; Estimated Glomerular Filt Rate > 60; Glucose 108 mg/dL (65-110); Sodium 140 mmol/L (137-145)
[2021-11-11 10:32] LABS: Beta HCG Quantitative 13.84 mIU/ML
--- NOTE | 2021-11-11 11:41 | PC.NURSE ---
Samia Arzate removed c-collar
[2021-11-11 11:58] VITALS: PULSE 71; RESP 16; O2SAT 99
== END 2021-11-11 11:59 | disposition home or self-care (01) ==
PROVIDERS: Emergency Provider Nurse Practitioner Family; PCP Family Medicine
DX: S13.4XXA Sprain of ligaments of cervical spine, initial encounter (principal); S39.012A Strain of muscle, fascia and tendon of lower back, initial encounter; S80.12XA Contusion of left lower leg, initial encounter; S80.11XA Contusion of right lower leg, initial encounter; N94.89 Other specified conditions associated with female genital organs and menstrual cycle; V49.40XA Driver injured in collision with unspecified motor vehicles in traffic accident, initial encounter
CPT/HCPCS: 36415; 70450; 71260; 72125; 73590; 74177; 80053; 84702; 85025; 99284; Q9967

== ENCOUNTER 2021-11-13 15:24 | Emergency (ER) | payer OTHER, SELFPAY ==
[2021-11-13 15:30] VITALS: BP 115/75; PULSE 92; RESP 16; TEMP 37.2; O2SAT 99
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
== END 2021-11-13 16:07 | disposition home or self-care (01) ==
PROVIDERS: Emergency Provider Internal Medicine Critical Care Medicine; PCP Family Medicine
DX: S80.12XD Contusion of left lower leg, subsequent encounter (principal); V89.2XXD Person injured in unspecified motor-vehicle accident, traffic, subsequent encounter
CPT/HCPCS: 99282

== ENCOUNTER 2021-11-26 10:20 | Outpatient (CLI) | payer OTHER, SELFPAY ==
--- NOTE | ~2021-11-26 | US_ITS ---
US arterial ankle brachial ind INDICATION: Peripheral vascular disease. Bilateral lower extremity pain, swelling and redness. TECHNIQUE: Segmental pressures and plethysmographic and Doppler waveforms of the brachial and lower e xtremity arteries were obtained. COMPARISON: None. FINDINGS: Right and left brachial artery pressures of 103 mm Hg and 102 mm Hg, respectively, are concordant (no rmal difference <= 30 mmHg). The right ankle-brachial index (LUIS EDUARDO) is 1.17 (normal >= 0.9-1.0). The right great toe-brachial index (TBI) is 0.83 (normal >= 0.60). The left LUIS EDUARDO is 1.2. The left TBI is 0.85. IMPRESSION: 1. Normal ankle-brachial indices. Reviewed, dictated and finalized at location A.
== END 2021-11-26 10:21 | disposition home or self-care (01) ==
LOC: CHSIMG 10:22
PROVIDERS: PCP Family Medicine; Visit Provider Registered Nurse
DX: R09.89 Other specified symptoms and signs involving the circulatory and respiratory systems (principal)
CPT/HCPCS: 93922

== ENCOUNTER 2021-12-02 08:26 | Outpatient (CLI) | payer OTHER, SELFPAY ==
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
== END 2021-12-02 08:27 | disposition home or self-care (01) ==
LOC: CHSIMG 08:27
PROVIDERS: PCP Family Medicine; Visit Provider Registered Nurse
DX: T14.8XXA Other injury of unspecified body region, initial encounter (principal)
CPT/HCPCS: 93971

== ENCOUNTER 2021-12-30 08:28 | Outpatient (CLI) | payer OTHER, SELFPAY ==
--- NOTE | ~2021-12-30 | US_ITS ---
CORRECTED REPORT ordering doctor changed 01/05/22 SYMONE EXAMINATION: US pelvic complete w TV DATE: 12/30/2021 09:56 INDICATION: Vaginal bleeding. Comparison:No prior studies for comparison. TECHNIQUE: Multiple transabdominal and endovaginal sonographic images of the pelvis performed. FINDINGS: The uterus measures 8.4 x 4.6 x 4.8 cm. The endometrial complex measures 5 mm. The right ovary measures 3.1 x 1.3 x 2 cm and the left ovary measures 2.8 x 1.8 x 1.6 cm. There are small follicles in each ovary. Normal doppler signal in both ovaries. There is no free fluid in the pelvis. There are no abnormal masses seen on either side. IMPRESSION: 1. Unremarkable pelvic ultrasound. Reviewed, dictated and finalized at location A. MTDD
== END 2021-12-30 08:29 | disposition home or self-care (01) ==
LOC: CHSIMG 08:29
PROVIDERS: PCP Internal Medicine; Visit Provider Registered Nurse
DX: N93.9 Abnormal uterine and vaginal bleeding, unspecified (principal)
CPT/HCPCS: 76830; 76856

== ENCOUNTER 2022-02-24 08:28 | Outpatient (CLI) | payer OTHER, SELFPAY | END 2022-02-24 08:29 | disposition home or self-care (01) | LOC: CHSIMG 08:29 | PROVIDERS: PCP Family Medicine; Visit Provider Registered Nurse | DX: R10.2 Pelvic and perineal pain (principal) | CPT/HCPCS: 99199 ==

== ENCOUNTER 2022-02-25 07:24 | Outpatient (CLI) | payer OTHER, SELFPAY ==
--- NOTE | ~2022-02-25 | US_ITS ---
EXAMINATION: US pelvic complete w TV DATE: 02/25/2022 08:10 INDICATION: Pelvic pain TECHNIQUE: Multiple transabdominal and endovaginal sonographic images of the pelvis were obtained. COMPARISON: 12/30/2021 FINDINGS: The uterus measures 8.1 x 5.3 x 4.8 cm. The endometrial complex measures 9 mm. The right ov li measures 3.5 x 4.1 x 1.9 cm. The left ovary measures 5.4 x 2.7 x 4.6 cm and contains a possible 3 .7 cm endometrioma.. There is normal vascular flow in the ovaries. There is no free fluid in the pelv is. IMPRESSION: 1. Probable endometrioma versus hemorrhagic cyst of the left ovary. Follow-up ultrasound in 8-12 week s is recommended. Reviewed, dictated and finalized at location A. IMPRESSION: 1. Probable endometrioma versus hemorrhagic cyst of the left ovary. Follow-up u ltrasound in 8-12 weeks is recommended.
== END 2022-02-25 07:25 | disposition home or self-care (01) ==
LOC: CHSIMG 07:25
PROVIDERS: PCP Family Medicine; Visit Provider Registered Nurse
DX: R10.2 Pelvic and perineal pain (principal)
CPT/HCPCS: 76830; 76856

== ENCOUNTER 2022-04-27 10:18 | Outpatient (CLI) | payer OTHER, SELFPAY ==
--- NOTE | ~2022-04-27 | US_ITS ---
EXAMINATION: US pelvic complete w TV DATE: 04/27/2022 11:37 INDICATION: PELVIC PAIN , follow-up left ovarian mass, possible endometrioma TECHNIQUE: Multiple transabdominal and endovaginal sonographic images of the pelvis were obtained. COMPARISON: 02/25/2022 FINDINGS: Uterus: 8.4 x 5.3 x 4.1 cm. Endometrial complex measures 4 mm. Right Ovary: 2.3 x 3.2 x 1.8 cm. Vascular flow is present. Left Ovary: 2.8 x 2.6 x 1.8 cm. Vascular flow is present. There is no free fluid in the pelvis. IMPRESSION: Normal pelvic sonogram findings. Reviewed, dictated and finalized at location K.
== END 2022-04-27 10:19 | disposition home or self-care (01) ==
LOC: CHSIMG 10:19
PROVIDERS: PCP Family Medicine; Visit Provider Registered Nurse
DX: R10.2 Pelvic and perineal pain (principal)
CPT/HCPCS: 76830; 76856

== ENCOUNTER 2022-05-30 12:14 | Outpatient (CLI) | payer OTHER, SELFPAY ==
[2022-05-30 12:55] LABS: Influenza Control Valid (Valid)
== END 2022-05-30 12:15 | disposition home or self-care (01) ==
LOC: CHSLAB 12:15
PROVIDERS: PCP Family Medicine; Visit Provider Family Medicine
DX: R68.89 Other general symptoms and signs (principal)
CPT/HCPCS: 87804

== ENCOUNTER 2022-05-31 21:10 | Emergency (ER) | payer OTHER, SELFPAY ==
[2022-05-31] VITALS (7 sets, daily range): BP systolic 107–120; BP diastolic 76–85; PULSE 108–123; RESP 11–20; TEMP 39.1; O2SAT 96–100
--- NOTE | ~2022-05-31 | XR_ITS ---
EXAMINATION: XR chest 2V DATE: 05/31/2022 23:45 INDICATION: Chest pain and cough TECHNIQUE: PA and lateral views of the chest are obtained. COMPARISON: None available FINDINGS: The lungs are free of acute opacities. No pleural effusion or pneumothorax. The cardiomedia stinal silhouette is normal. The visualized bones and soft tissues are unremarkable. IMPRESSION: 1. No acute cardiopulmonary abnormality. Reviewed, dictated and finalized at location A. MAN
[2022-05-31 22:54] LABS: Influenza A QL RT-PCR Negative (Negative); Influenza B QL RT-PCR Negative (Negative); RSV RNA, RT-PCR Negative (Negative); SARS-CoV-2 RNA PCR Negative
[2022-05-31] MEDS: ACETAMINOPHEN 500 MG TABLET 1000 MG PO (23:25)
--- NOTE | 2022-05-31 23:29 | ED.URI ---
HPI - URI/Sore Throat General Chief Complaint: Upper Respiratory Infection Stated Complaint: upper resp Time Seen by Provider: 05/31/22 22:53 Source: patient Mode of arrival: ambulatory Limitations: no limitations History of Present Illness HPI Narrative: 27-year-old female presents today with complaints of cough, fever, body aches, chills, malaise, myalgias that started on Monday. Patient states she was tested for COVID and flu yesterday but still does not feel well. Patient states she is able to drink fluids without difficulty but they taste weird. Productive cough noted. Patient febrile upon examination and slightly tachycardic. She is ill-appearing but nontoxic appearing. She also complains of burning on urination that started today. Denies any back pain, nausea, vomiting, diarrhea, sick contacts. Related Data Home Medications Medication Instructions Recorded Confirmed paroxetine HCl 30 mg tablet 30 mg PO DAILY 06/11/21 11/13/21 albuterol sulfate 90 mcg/actuation 90 mcg inhalation DAILY 11/13/21 11/13/21 aerosol inhaler Allergies Allergy/AdvReac Type Severity Reaction Status Date / Time No Known Allergies Allergy Verified 05/31/22 22:04 Review of Systems Review of Systems: CONSTITUTIONAL: Fever chills sweats. EYES: Denies visual changes, redness, or discharge. ENT: Congestion, sore throat, right otalgia. CARDIOVASCULAR: Denies chest pain, palpitations, or edema. RESPIRATORY: Productive cough. Denies dyspnea. GASTROINTESTINAL: Denies abdominal pain, nausea, vomiting, or diarrhea. GENITOURINARY: Dysuria starting today. Denies hematuria. SKIN: Denies rash or itching. MUSCULOSKELETAL: Denies back pain, joint pain, or myalgia. NEUROLOGIC: Denies headache, numbness, dizziness, or weakness. PSYCHIATRIC: Denies anxiety or depression. [facility] Past Medical History Medical History Patient denies medical problems Surgical History Surgical History H/O laparoscopy for possible endometriosis none found Social History Social History Smoking status: Never smoker Alcohol intake: never Substance use: never Gender identity (if verbalized by the patient): Female Exam Narrative: GENERAL: Ill-appearing and in no acute distress. HEAD: Normocephalic, atraumatic. EYES: PERRLA and EOMI. ENT: Nares clear, no rhinorrhea or epistaxis. Mucous membranes moist. Oropharynx without tonsillar hypertrophy exudate or other lesions, erythema noted.. Bilateral TMs pearly de la garza nonbulging NECK: Supple. No adenopathy or masses. No carotid bruits or JVD CHEST: Clear to auscultation. No respiratory distress. No wheezes rales or rhonchi HEART: Tachycardia with regular rhythm. No murmur heard. Normal peripheral pulses. ABDOMEN: Soft, nontender, nondistended, normal active bowel sounds. EXTREMITIES: Normal range of motion. No edema. SKIN: Warm, dry, no rash. NEURO: No focal deficits. Alert and oriented x3. PSYCH: Normal mood and affect. Course Course Emergency Course: Patient states she is feeling better after Tylenol. Discussed lab findings that were negative with influenza, RSV, COVID, strep. Discussed possible infiltrate seen on chest x-ray. We will treat for pneumonia. Patient started patient on doxycycline. Patient is agreement with plan of care. Vital Signs Vital signs: Vital Signs Temperature 102.3 F H 05/31/22 21:13 Pulse Rate 123 H 05/31/22 21:13 Respiratory Rate 20 05/31/22 21:13 Pulse Oximetry 99 05/31/22 21:13 Oxygen Delivery Room Air 05/31/22 21:13 Temperature 102.3 F H 05/31/22 21:13 Pulse Rate 103 H 06/01/22 01:54 Respiratory Rate 19 06/01/22 01:54 Blood Pressure 119/83 06/01/22 01:54 Pulse Oximetry 97 06/01/22 01:54 Oxygen Delivery Room Air 05/31/22 22:05 MDM - URI/Sore Throat MDM Narrati
[2022-05-31 23:41] LABS: Appearance Urine Clear (Clear); Bilirubin Urine Negative (Negative); Blood Urine Negative (Negative); Color Urine Yellow (Yellow); Glucose Urine UA Negative (Negative); Ketones Urine Negative (Negative); Leukocyte Esterase Ur Negative LEU/UL (Negative); Nitrate Urine Negative (Negative); Protein Urine Negative (Negative); Specific Grav Ur 1.015 (1.001-1.035); Urobilinogen Urine 0.2 mg/dL (<2.0)
[2022-05-31 23:44] LABS: Add Urine Microscopic? YES; Bacteria Urine Trace /hpf; RBC Urine 0-2 /hpf (0-2); Squamous Epithelial Cell Urine Rare /hpf (Few)
[2022-06-01 00:06] LABS: Strep Group A RT-PCR NOT DETECTED (Negative)
[2022-06-01] MEDS: BENZONATATE 100 MG CAPSULE PO (00:31)
[2022-06-01 01:54] VITALS: BP 119/83; PULSE 103; RESP 19; O2SAT 97
[2022-06-01] MEDS: DOXYCYCLINE HYCLATE 100 MG TABLET PO (01:54)
== END 2022-06-01 02:00 | disposition home or self-care (01) ==
PROVIDERS: Emergency Medicine; Emergency Provider Nurse Practitioner Family; PCP Family Medicine
DX: R91.8 Other nonspecific abnormal finding of lung field (principal); B34.9 Viral infection, unspecified; Z20.822 Contact with and (suspected) exposure to COVID-19
CPT/HCPCS: 71046; 81001; 87637; 87651; 99283; A9270

== ENCOUNTER 2022-06-16 11:00 | Outpatient (RCR) | payer OTHER, SELFPAY | END 2022-08-30 13:18 | disposition home or self-care (01) | LOC: ANHPT 11:00 | PROVIDERS: PCP Family Medicine; Visit Provider Family Medicine | DX: R10.2 Pelvic and perineal pain (principal) | CPT/HCPCS: 99199 ==

== ENCOUNTER 2022-08-04 18:15 | Emergency (ER) | payer OTHER, SELFPAY ==
--- NOTE | ~2022-08-04 | XR_ITS ---
EXAMINATION: XR shoulder RT min 2V DATE: 08/04/2022 19:28 INDICATION: Right shoulder pain radiating to the right arm post fall TECHNIQUE: AP and transscapular Y views of the right shoulder were obtained. COMPARISON: None FINDINGS: Mild S-shaped thoracic scoliosis. Right shoulder alignment is normal. No fracture. Acromioclavicular joint is normal. Glenohumeral joint appears unremarkable but is suboptimally profiled. Visualized po rtions of the lungs are clear. Soft tissues are unremarkable. IMPRESSION: No acute osseous abnormality. Reviewed, dictated and finalized at location A. OVER MACHINE OPERATOR
--- NOTE | ~2022-08-04 | XR_ITS ---
EXAMINATION: XR forearm RT 2V, XR elbow RT 2V DATE: 08/04/2022 19:26 INDICATION: Right elbow and forearm pain post fall TECHNIQUE: 1. AP, lateral and 2 oblique views of the right elbow were obtained. 2. AP an lateral views of the affected forearm were obtained. COMPARISON: none FINDINGS: Impacted intra-articular fracture at the head of the proximal right radius with approximately 2 mm de pression along the articular cortex. Fracture fragment versus involve no greater than 20% of the abby cular surface area. Alignment is otherwise normal. Joint spaces at the right elbow, wrist and visuali zed hand are otherwise unremarkable. There is associated right elbow joint effusion with displacement of the anterior fat pad. Soft tissues are otherwise unremarkable. IMPRESSION: 1. Intra-articular fracture involving a small portion of the articular surface at the right radial he ad with 2 mm incongruity along the articular surface and associated joint effusion. Reviewed, dictated and finalized at location A. TRONIC TYPESETTING MACHINE OPERATOR IMPRESSION: 1. Intra-articular fracture involving a small portion of the articular surface at the right radial head with 2 mm incongruity along the articular surface and associated joint effusion.
--- NOTE | ~2022-08-04 | XR_ITS ---
EXAMINATION: XR knee LT 2V DATE: 08/04/2022 19:27 INDICATION: Radiation along the anterior left knee post fall TECHNIQUE: AP and crosstable lateral views of the left knee. COMPARISON: None. FINDINGS: Alignment is normal. No fracture. Joint spaces are normal. No left knee joint effusion. Minimal soft tissue swelling anterior to the distal pole of the patella. No radiopaque foreign bodies. IMPRESSION: 1. Minimal prepatellar soft tissue swelling. Otherwise unremarkable left knee radiographs. Reviewed, dictated and finalized at location A. N RESOURCES EXECUTIVE ASSISTANT IMPRESSION: 1. Minimal prepatellar soft tissue swelling. Otherwise unremarkable left knee r adiographs.
[2022-08-04 18:30] VITALS: PULSE 86; RESP 20; TEMP 36.6; O2SAT 100
[2022-08-04] MEDS: ONDANSETRON HCL ODT 4 MG TABLET PO (18:45)
[2022-08-04] MEDS: KETOROLAC (*BKC) 60 MG/2 ML VIAL IM (18:46)
[2022-08-04] MEDS: TETANUS,DIPHTHERIA,AC PERTUSSIS ADULT 0.5 ML (ADACEL) IM (18:46)
[2022-08-04 18:51] VITALS: BP 113/81
--- NOTE | 2022-08-04 19:20 | PC.NURSE ---
Assumed care of pt
[2022-08-04] MEDS: NEOMYCIN/POLYMYXIN/BACITRACIN OINTMENT PACKET 1 PACKET TOPICAL (19:37)
--- NOTE | 2022-08-04 19:43 | ED.FALL ---
HPI - Fall General Chief Complaint: Fall Stated Complaint: fall; right arm injury Time Seen by Provider: 08/04/22 18:25 Source: patient and family Mode of arrival: ambulatory Limitations: no limitations History of Present Illness HPI Narrative: this is a 27-year-old female that tripped and fell causing injury to her left knee and to her right shoulder elbow and forearm, patient rates her pain an 8 out 10 has an abrasion the anterior surface of her left knee otherwise there is some numbness and tingling in her right hand and fingers has decreased range of motion secondary to pain and inflammation. There was no loss consciousness no headache no blurry vision. complaint: fall Onset (ago): hour(s) Fall from: standing Fall witnessed: no Place fall occurred: street Loss of consciousness: none Prolonged down time: no Symptoms prior to fall: none Context: tripped/slipped Severity: moderate Severity scale (1-10): 6 Related Data Home Medications Medication Instructions Recorded Confirmed norethindrone 1 mg-ethinyl 1 tablet PO DAILY 08/04/22 08/04/22 estradiol 20 mcg (21)-iron 75 mg (7) tablet (Bertram Fe 07/15 (28)) Allergies Allergy/AdvReac Type Severity Reaction Status Date / Time No Known Allergies Allergy Verified 08/04/22 19:04 Review of Systems Review of Systems: All systems reviewed & are unremarkable except as noted in HPI and below PMFSH Past Medical History Medical History Patient denies medical problems Surgical History Surgical History H/O laparoscopy for possible endometriosis none found Social History Social History Smoking status: Never smoker Alcohol intake: never Substance use: never Living arrangements: with family Gender identity (if verbalized by the patient): Female Exam Const: General: healthy appearing, no acute distress and alert Nutritional Appearance: well nourished Limitations: no limitations HENMT: Head: normal to inspection Face/Nose/Sinus: Normal external nose present Face and sinus: normal facial exam Mouth: Yes Normal oral and palatal mucosa present Teeth and gingiva: dentition normal Throat: posterior oropharynx normal Eyes: Conjunctivae: conjunctivae normal Pupils: Equal, round and reactive pupils present Direct Ophthalmoscopy: no photophobia Neck: Neck: normal visual inspection Chest: Chest palpation & inspection: normal inspection of the chest Resp: Effort & Inspection: normal respiratory effort Auscultation: clear to auscultation bilaterally Cardio: Rate: regular rate Rhythm: regular rhythm GI: Auscultation: normal bowel sounds Rectal Exam: normal sphincter tone : General: Yes bladder normal to palpation Urinary Catheter: Urinary Catheter: patent and draining Back/Spine/Pelvis: Back: no CVA tenderness Skin: General skin exam: normal color Wounds: wounds noted Other: Abrasion anterior left knee Neuro: General: patient oriented x3 Cranial nerves: Yes Nystagmus not present Speech: normal speech Extrem: General: normal to inspection Psych: Mental Status: mental status grossly normal Course Course Emergency Course: patient had x-rays performed and reviewed, patient received 60mg IM Toradol and pain has improved also updated patient with her tetanus vaccine. Vital Signs Vital signs: Vital Signs Temperature 36.6 C 08/04/22 18:30 Pulse Rate 86 08/04/22 18:30 Respiratory Rate 20 08/04/22 18:30 Pulse Oximetry 100 08/04/22 18:30 Oxygen Delivery Room Air 08/04/22 18:30 Temperature 36.6 C 08/04/22 18:30 Pulse Rate 86 08/04/22 18:30 Respiratory Rate 20 08/04/22 18:30 Blood Pressure 113/81 08/04/22 18:51 Pulse Oximetry 100 08/04/22 18:30 Oxygen Delivery Room Air 08/04/22 18:30 Critical Care Time Critical Care
== END 2022-08-04 20:26 | disposition home or self-care (01) ==
PROVIDERS: Emergency Provider Emergency Medicine; PCP Family Medicine
DX: S42.401A Unspecified fracture of lower end of right humerus, initial encounter for closed fracture (principal); S80.212A Abrasion, left knee, initial encounter; Z23 Encounter for immunization; W01.0XXA Fall on same level from slipping, tripping and stumbling without subsequent striking against object, initial encounter; Y92.410 Unspecified street and highway as the place of occurrence of the external cause
CPT/HCPCS: 29105; 73030; 73070; 73090; 73560; 90471; 90715; 96372; 99284; A4565; A9270; J1885

== ENCOUNTER 2023-02-28 15:00 | Outpatient (RCR) | payer OTHER, SELFPAY ==
--- NOTE | 2023-03-03 10:51 | BUOTOPEVAL ---
Assessment and note entered by Aleta Mathews, OT Evaluation Information Assessment Status Evaluation Diagnosis R elbow pain Onset August 04, 2022 Subjective Information The patient reports the pain as achey and it is constant especially when she is working. The patient reports tinging in forearm as moderate at this time. Reported Pain Level Pain Score 0: Self Report Assessment OT Clinical Summary The patient is a 27 year old female who was referred to outpatient OT due to R elbow pain. The patient previously demonstrated 0/10 pain in R elbow and WFL UE strength and enthone solder stripper/pinch strength. The patient now demonstrates moderate pain and tingling in R UE and significantly impaired enthone solder stripper/ pinch strength. The patient requires skilled OT to address these deficits and improve the patient's ability to complete work tasks and care for her children. Plan of Care Interventions Therapeutic Exercise,Manual Therapy,Neuro Re- education,Therapeutic Activities,Hot Pack/Cold Pack,Electrical Stimulation,Sensory Integrative Techn,Self-Care/Home Management,Ultrasound OT Services Indicated Yes Treatment Frequency and 1-2x/week. Duration These treatments will address the objective and functional deficits as defined above. The patient will be advanced safely and appropriately in order for the patient to progress towards his/her prior level of function. Additional exercises will be introduced and as well as a comprehensive home exercise program upon discharge, if needed, ?to ensure carryover of functional gains achieved in the clinic. This treatment plan has been reviewed and agreement upon by the patient.
--- NOTE | 2023-07-31 08:31 | PCOTNOTE ---
Pt. discharged due to >30 days since treatment.
== END 2023-02-28 23:59 | disposition home or self-care (01) ==
LOC: CHSOT 15:00
PROVIDERS: PCP Family Medicine; Visit Provider Registered Nurse
DX: M25.522 Pain in left elbow (principal)
CPT/HCPCS: 97140; 97165

== ENCOUNTER 2023-07-18 08:17 | Outpatient (CLI) | payer BC, SELFPAY ==
--- NOTE | ~2023-07-18 | US_ITS ---
US abdomen limited INDICATION: Abdominal pain PROCEDURE: Realtime right upper abdominal ultrasound. COMPARISON: No prior studies for comparison. FINDINGS: The pancreas is normal without focal mass or pancreatic ductal dilation. Liver echotexture is normal without focal mass or intrahepatic biliary dilatation. There is normal directional flow i n the portal vein. The gallbladder is normal without stones, gallbladder wall thickening or pericholecystic fluid. Comm on bile duct measures 5 mm. No sonographic Herman's sign. IMPRESSION: 1: Normal limited abdominal ultrasound. Reviewed, dictated and finalized at location L. ER CONSULTANT
== END 2023-07-18 08:18 | disposition home or self-care (01) ==
PROVIDERS: PCP Family Medicine; Visit Provider Registered Nurse
DX: R10.9 Unspecified abdominal pain (principal)
CPT/HCPCS: 76705

== ENCOUNTER 2023-08-21 08:42 | Outpatient (CLI) | payer BC, SELFPAY ==
--- NOTE | ~2023-08-21 | NM_ITS ---
EXAMINATION: NM hepatobiliary wo pharm DATE: 08/21/2023 11:25 INDICATION: Epigastric abdominal pain. Postprandial nausea. COMPARISON: Abdomen ultrasound 07/18/2023 TECHNIQUE: 5 mCi Tc-99m mebrofenin (Choletec) was administered intravenously. Scintigraphic images o f the abdomen were obtained for one hour. Then, the patient drank 8 oz Ensure, and imaging was contin ued for 60 minutes. FINDINGS: There is normal clearance of radiotracer from the blood pool. There is homogeneous tracer u ptake by the liver. Activity progresses to the bowel and gallbladder. Gallbladder ejection fraction (GBEF) was 69%. Note that with this technique, normal GBEF >= 33%. IMPRESSION: 1. Normal hepatobiliary scintigraphy. Reviewed, dictated and finalized at location A. CISE PHYSIOLOGIST
== END 2023-08-21 08:43 | disposition home or self-care (01) ==
PROVIDERS: PCP Family Medicine; Visit Provider Nurse Practitioner
DX: R11.0 Nausea (principal); R10.13 Epigastric pain
CPT/HCPCS: 78226; A9537

== ENCOUNTER 2023-10-09 03:09 | Day surgery (SDC) | payer BC, SELFPAY ==
[2023-09-25 15:32] VITALS: BMI 21.2
[2023-10-09 09:16] VITALS: BP 106/74; PULSE 103; RESP 18; TEMP 36.1; O2SAT 100
[2023-10-09] MEDS: LACTATED RINGERS 1,000 ML 150 ML IV CONT (09:30)
--- NOTE | 2023-10-09 09:40 | PM.HPGS ---
History of Present Illness History of Present Illness Consent: Risks, benefits, and alternatives have been discussed and questions answered. Patient agrees to proceed with procedure. Chief complaint: IBS-C,Abdom.pain,Gaseous,Epigastric pain,Nausea Narrative: Christine Alegre is a 28 year old female with nausea, intermittent pain after eating, ibs-c, never had scopes Review of Systems Review of Systems: All systems reviewed & are unremarkable except as noted in HPI and below PMFSH Past Medical History Medical History (Updated 08/15/23 @ 09:35 by Onelia Mar APRN) Abdominal bloating Epigastric pain Generalized abdominal discomfort IgG Gliadin antibody positive Irritable bowel syndrome with constipation Patient denies medical problems Postprandial nausea Surgical History Surgical History H/O laparoscopy for possible endometriosis none found Family History Family History Other Depression Diabetes mellitus Hypertension Social History Social History Smoking status: Never smoker Alcohol intake: current Substance use: never Substance use type: does not use Living arrangements: with family Gender identity (if verbalized by the patient): Female Spiritual care concerns: No Meds Home Medications and Allergies Home Medications Medication Instructions Recorded Confirmed Type drospirenone (contraceptive) 4 mg 1 tablet PO DAILY 09/25/23 09/25/23 History (28) tablet (Slynd) Allergies Allergy/AdvReac Type Severity Reaction Status Date / Time No Known Allergies Allergy Verified 10/09/23 09:14 Vital Signs Vital Signs - 24 hr 10/09/23 09:16 Temperature 97 F L Pulse Rate 103 H Respiratory Rate 18 Blood Pressure 106/74 Pulse Oximetry 100 Oxygen Delivery Room Air Exam Const: General: comfortable and no acute distress HENMT: Face/Nose/Sinus: Normal nares present Eyes: General: appearance normal, both eyes and all related structures Neck: Neck: no JVD Resp: Auscultation: clear to auscultation bilaterally Cardio: Rate: regular rate Rhythm: regular rhythm GI: Inspection: non-distended GI Palp: Yes Soft to palpation Skin: General skin exam: normal color Neuro: General: gait normal Speech: normal speech Extrem: General: normal to inspection Psych: Mental Status: mental status grossly normal Assessment and Plan Assessment and plan (1) Generalized abdominal discomfort: Code(s): R10.84 - Generalized abdominal pain Status: Acute Assessment and Plan: egd with bx (2) Postprandial nausea: Code(s): R11.0 - Nausea Status: Acute (3) Irritable bowel syndrome with constipation: Code(s): K58.1 - Irritable bowel syndrome with constipation Status: Acute Assessment and Plan: colonoscopy
--- NOTE | 2023-10-09 09:40 | WPDANESEPPF ---
Anes - Initial Pre Proc Eval Procedure: Operation Date: 10/09/23 11:30 Proposed Procedures p Esophagogastroduodenoscopy & Colonoscopy - Bernard Chavez MD Date/Time: 10/09/23 09:40 Surgeon: Bernard Chavez MD Pre Op Diagnosis: IBS-C,Abdom.pain,Gaseous,Epigastric pain,Nausea Patient Data Age: 28 Gender: F Height: 1.65 m Weight: 54.8 kg Last Vital Signs Temp 97 F L 10/09/23 09:16 Pulse 103 H 10/09/23 09:16 Resp 18 10/09/23 09:16 BP 106/74 10/09/23 09:16 Pulse Ox 100 10/09/23 09:16 O2 Del Method Room Air 10/09/23 09:16 Allergies Allergy/AdvReac Type Severity Reaction Status Date / Time No Known Allergies Allergy Verified 10/09/23 09:14 Home Medications Medication Instructions Recorded Confirmed Type drospirenone (contraceptive) 4 mg 1 tablet PO DAILY 09/25/23 09/25/23 History (28) tablet (Slynd) Patient hx anesthesia problems: none Family hx anesthesia problems: none Results Review: All pre-operative results and documents have been reviewed as part of the pre-operative evaluation. [facility] Past Medical History Medical History (Updated 08/15/23 @ 09:35 by Onelia Mar APRN) Abdominal bloating Epigastric pain Generalized abdominal discomfort IgG Gliadin antibody positive Irritable bowel syndrome with constipation Patient denies medical problems Postprandial nausea Surgical History Surgical History H/O laparoscopy for possible endometriosis none found Family History Family History Other Depression Diabetes mellitus Hypertension Social History Social History Smoking status: Never smoker Alcohol intake: current Substance use: never Substance use type: does not use Living arrangements: with family Gender identity (if verbalized by the patient): Female Spiritual care concerns: No Anes - Eval Final PreProcedure Day of Procedure 10/09/23 09:40 Patient weight: normal Heart: regular rate and rhythm Lungs: clear to auscultation Airway: Mallampati scale class II Neurological: alert and oriented Last oral intake: >/= 8 hours ASA classification: II Emergent: no Anesthetic plan: proceed Anesthesia type and monitoring: general GIVS and standard monitoring Results Review: All pre-operative results and documents have been reviewed as part of the pre-operative evaluation. Informed Consent: The patient's anesthetic plan and its attendant risks and benefits were discussed with the patient/family/POA. Questions were solicited and answers provided to the satisfaction of the patient/family/POA.
[2023-10-09 10:17] VITALS: BP 102/72; PULSE 94; RESP 27; O2SAT 100
[2023-10-09 10:27] VITALS: BP 107/76; PULSE 89; RESP 13; O2SAT 100
[2023-10-09 10:37] VITALS: BP 112/76; PULSE 85; RESP 15; O2SAT 100
== END 2023-10-09 10:46 | disposition home or self-care (01) ==
PROVIDERS: PCP Family Medicine; Visit Provider Internal Medicine Gastroenterology
PROC: 0DJ08ZZ Inspection of Upper Intestinal Tract, Via Natural or Artificial Opening Endoscopic (ICD-10-PCS; CPT 43235; principal; 2023-10-09 11:30)
DX: K29.50 Unspecified chronic gastritis without bleeding (principal); K64.8 Other hemorrhoids; K58.1 Irritable bowel syndrome with constipation; R76.8 Other specified abnormal immunological findings in serum
CPT/HCPCS: 43239; 45378; 88305; 88342; J2704; J7120

== ENCOUNTER 2024-11-26 12:38 | Outpatient (CLI) | payer BC, SELFPAY ==
--- NOTE | ~2024-11-26 | US_ITS ---
EXAMINATION: US pelvic complete w TV INDICATION: Follow-up left ovarian mass Comparison:04/27/2022 TECHNIQUE: Multiple transabdominal and endovaginal sonographic images of the pelvis performed. FINDINGS: The uterus measures 8.4 x 5.3 x 4.1 cm. The endometrial complex measures 3.5 mm. The right ovary measures 2.3 x 3.2 x 1.8 cm and the left ovary measures 2.8 x 2.6 x 1.8 cm. There ar e small follicles in each ovary. Normal doppler signal in both ovaries. There is no free fluid in the pelvis. There are no abnormal masses seen on either side. IMPRESSION: 1. Normal pelvic ultrasound. Reviewed, dictated and finalized at location A.
--- OUTSIDE RECORDS SUMMARY | 2024-11-26 12:42 | XMS_ITS | Data Portability ---
Author Organization [facility] Address [address] [place] [address] [place] [address] Care Team Providers Care Hot Car Charger Name Role Phone TERESSA HUMPHRIES Primary Care Provider [phone] Assessment No assessment recorded. Plan of Treatment Reminders Order Date Submit Date Provider Last Modified By Organization Details Last Modified Time Details Appointments None recorded . Lab pregnanc y test, urine 2022 023 [facility], [address], [place], [address], 3 10:54:55 pregnanc y test, urine 2022 023 [facility], [facility] [address], [place], [address], 3 10:21:[address] referral - Irregula r bowel habitsPl ease contact this patient to schedule an appointm ent.Madi ched are the patients demograp hics and most recent office visit notes.If you have any question s, please contact me at [phone].Th ank you,Dominguez hensley, Referral 's 2022 023 [facility], [address], [address], [place], [address], 3 17:29:01 Procedures None recorded . Surgeries None recorded . Imaging US, pelvis 2022 023 [email or web address] [facility], [address], [place], [address], 3 18:59:44 US, transvag inal 2022 023 [email or web address] [facility], [address], [place], [address], 18:59:44 US, pelvis, complete 2022 023 [email or web address] [facility], [address], [place], [address], 3 14:13:02 Medication Orders Slynd 4 mg (28) tablet 2022 023 [facility] [address] [place], [address], 3 12:24:46 Slynd 4 mg (28) tablet 2022 023 [facility] [address] [place], [address], 3 15:23:15 Slynd 4 mg (28) tablet 2022 023 [facility] [address] [place], [address], 3 10:45:46 Patient TargetsNo targets recorded. Patient InstructionsNo instructions recorded. Reason for Referral Admissions Clinician Referral for Irregular bowel habits Irregular bowel habits Irregular bowel habitsPlease contact this patient to schedule an appointment.Attached are the patients demographics and most recent office visit notes.If you have any questions, please contact me at [phone].Thank you,Maria Fernanda Referral's Referring Physician: Nazia Bagley, CODING CONSULTANT, Encounter Date: 09/01/2022 Results Created Date Observation Date Name Description Value Unit Range Abnormal Flag Note LastModifiedBy Organization Detail LastModifiedTime 09/02/19 23 09/01/2022 pregn sadia test, urine HCG negati ve Not Available [facility] [address], [place], [address], 09/01/2022 10:21:20 10/27/19 23 10/26/2022 pregn sadia test, urine HCG negati ve Not Available [facility] [address], [place], [address], 10/26/2022 10:54:46 10/29/19 23 10/28/2022 US, pelvi s No observ ation record ed. [email or web address], [place], [address], 10/28/2022 14:56:44 10/29/19 23 10/28/2022 US, trans vagin al No observ ation record ed. [address], [place], [address], 10/28/2022 14:56:36 10/29/19 23 10/28/2022 US, pelvi s No observ ation record ed. laura [address], [facility], [place], [address], 11/01/2022 09:18:30 Result Notes None recorded. Procedures Surgical History Date Name Laterality Status Provider Name and Address Organization Details Recorded Time 05/06/20 22 Date of Last Pap Smear completed [facility] 05/11/2022 09:59:08 05/29/[address] [facility] 05/11/2022 10:02:34 Imaging Results None recorded. Procedure Notes None recorded. Medical Equipment None Reported. Allergies No known drug allergies Medications Name Sig Start Date Stop Date Status Note LastModified by Organization Details LastModified Time Pain Reliever Extra Strength (acetaminop hen) 500 mg tablet TAKE 2 TABLETS BY MOUTH EVERY 6 HOURS NEEDED FOR PAIN 05/11 completed Not Available Not Available Not Available azithromyci n 250 mg tablet TAKE 2 TABLETS BY MOUTH ON DAY 1, AND THEN TAKE 1 TABLET BY MOUTH ONCE A DAY ON DAY 2 THROUGH DAY 5 05/11 completed Not Available Not Available Not Available fluconazole 150 mg tablet TAKE 1 TABLET BY MOUTH ONCE, REPEAT IN 2 DAYS WITH PERSISTEN T SYMPTOMS 05/11 completed Not Available Not Available Not Available metronidazo le 500 mg tablet 05/11 completed Not Available Not Available Not Available ketorolac 10 mg tablet TAKE 1 TABLET BY MOUTH 4 TIMES DAILY FOR 5 DAYS 05/11 completed Not Available Not Available Not Available methocarbam ol 750 mg tablet TAKE 1 TABLET BY MOUTH THREE TIMES DAILY 05/11 completed Not Available Not Available Not Available benzonatate 100 mg capsule TAKE 1 CAPSULE BY MOUTH THREE TIMES DAILY NEEDED 05/11 completed Not Available Not Available Not Available paroxetine 30 mg tablet TAKE 1 TABLET BY MOUTH ONCE DAILY IN THE MORNING 05/11 completed Not Available Not Available Not Available docusate sodium 100 mg capsule TAKE 1 CAPSULE BY MOUTH ONCE DAILY active Not Available Not Available No t Available sertraline 25 mg tablet active Not Available Not Available Not Available codeine 10 mg-guaifene sin 100 mg/5 mL oral liquid TAKE 10ML BY MOUTH EVERY 6 HOURS NEEDED FOR COUGH 05/11 completed Not Available Not Available Not Available ergocalcife rol (vitamin D2) 1,250 mcg (50,000 unit) capsule TAKE 1 CAPSULE BY MOUTH ONCE A WEEK 05/11 completed Not Available Not Available Not Available albuterol sulfate HFA 90 mcg/actuati on aerosol inhaler INHALE 2 PUFFS BY MOUTH EVERY 6 HOURS NEEDED 05/11 completed Not Available Not Available Not Available ferrous sulfate 325 mg (65 mg iron) tablet,lisa yed release TAKE 1 TABLET BY MOUTH THREE TIMES DAILY 05/11 completed Not Available Not Available Not Available sertraline 50 mg tablet TAKE 1/2 TABLET BY MOUTH DAILY FOR 1 WEEK, THEN TAKE ONE TABLET BY MOUTH DAILY 05/11 completed Not Available Not Available Not Available doxycycline hyclate 100 mg tablet 05/11 completed Not Available Not Available Not Available naproxen 500 mg tablet TAKE 1 TABLET BY MOUTH TWICE DAILY NEEDED 05/11 completed Not Available Not Available Not Available metoclopram freida 10 mg tablet TAKE 1 TABLET BY MOUTH EVERY 6 HOURS NEEDED FOR NAUSEA AND VOMITING 05/11 completed Not Available Not Available Not Available amoxicillin 875 mg-angelyjoycetara m clavulanate 125 mg tablet 05/11 completed Not Available Not Available Not Available duloxetine 20 mg capsule,del ayed release TAKE 1 CAPSULE BY MOUTH ONCE DAILY 05/11 completed Not Available Not Available Not Available duloxetine 30 mg capsule,del ayed release TAKE 1 CAPSULE BY MOUTH ONCE DAILY 05/11 completed Not Available Not Available Not Available duloxetine 60 mg capsule,del ayed release TAKE 1 CAPSULE BY MOUTH ONCE DAILY active Not Available Not Available No t Available chlorhexidi ne gluconate 0.12 % mouthwash RINSE 1/2 (ONE-HALF ) OUNCE IN MOUTH TWICE DAILY FOR 8 DAYS 05/11 completed Not Available Not Available Not Available Camrese Lo 0.1 mg-20 mcg (84)/10 mcg (7) tablets,3 month dose pack TAKE 1 TABLET BY MOUTH ONCE DAILY 09/01 completed Not Available Not Available Not Available Bertram Fe 07/15 (28) 1 mg-20 mcg (21)/75 mg (7) tablet TAKE 1 TABLET BY MOUTH ONCE DAILY 09/01 completed Not Available Not Available Not Available Ashlyna 0.15 mg-30 mcg (84)/10 mcg(7) tablets,3 month dose pack TAKE 1 TABLET BY MOUTH ONCE DAILY 05/11 completed Not Available Not Available Not Available EC-Naproxen 500 mg tablet,lisa yed release TAKE 1 TABLET BY MOUTH TWICE DAILY FOR 14 DAYS active Not Available Not Available No t Available M- Plus 27 mg iron-1 mg tablet TAKE 1 TABLET BY MOUTH ONCE DAILY 05/11 completed Not Available Not Available Not Available Slynd 4 mg (28) tablet TAKE 1 TABLET BY MOUTH ONCE DAILY active Not Available Not Available No t Available Vitals Date Recorded Body height Systolic blood pressure Diastolic blood pressure Provider Name and Address Organization Details Last Updated DateTime 09/01/2022 165.1 cm 103 mm[Hg] 68 mm[Hg] Glenda Zaragoza [facility] 09/01/2022 10:11:15 Date Recorded Body height Systolic blood pressure Diastolic blood pressure Provider Name and Address Organization Details Last Updated DateTime 10/26/2022 165.1 cm 107 mm[Hg] 74 mm[Hg] Glenda Zaragoza [facility] 10/26/2022 10:48:07 Date Recorded Body height Systolic blood pressure Diastolic blood pressure Provider Name and Address Organization Details Last Updated DateTime 10/31/2022 165.1 cm 104 mm[Hg] 66 mm[Hg] Glenda Zaragoza [facility] 10/31/2022 14:54:13 Social History Question Answer Notes LastModified by [employer] Details LastModified Time Tobacco Smoking Status Never Smoker Glenda Zaragoza [facility] 05/11/2022 10:02:14 Are You Blind Or Do You Have Difficulty Seeing? No Information not available 05/11/2022 Are You Deaf Or Do You Have Serious Difficulty Hearing? No Information not available 05/11/2022 What Type Of Diet Are You Following? REGULAR Information not available 05/11/2022 Do You Have Difficulty Walking Or Climbing Stairs? No Information not available 05/11/2022 Sex: Unknown Functional Status Question Answer Note LastModified by [employer] Details LastModified Time What is your level of alcohol consumption? Occasional Information not available 05/11/2022 Are you able to walk? YESWOREST Information not available 05/11/2022 Are you able to care for yourself? Yes Information not available 05/11/2022 Do you have difficulty dressing or bathing? No Information not available 05/11/2022 What is your exercise level? None Information not available 05/11/2022 Mental Status None recorded. Family History Relationship Description Onset Age of this Age Resolved Age Notes LastModified by Organization Details LastModified Time Father Essential hypertension vschroedter Not available 1 07/11/2021 10:01:23 Mother Essential hypertension vschroedter Not available 1 07/11/2021 10:01:28 Paternal Grandmother Essential hypertension vschroedter Not available 1 07/11/2021 10:01:32 Medical History Condition Response Allergies (Food, seasonal, environmental ) N Other N Blood Transfusion N Drug/Latex Allergies/Reactions N Breast Cancer N Dermatologic Disorders N Lung Disease N Defects or Inherited Disease N Breast Problem N Gestational Diabetes N Hematologic disorders N Anesthesia Complications N History of STI N Deep Vein Thrombosis N Polycystic ovary syndrome N Anxiety Disorder N Autoimmune disease N Arthritis N Infertility N Polyps N Acid Reflux (GERD) N History of abnormal pap N Cancer N Stroke N Varicosities N Neurologic/Epilepsy N Endometriosis N High Cholesterol N Headaches Y Fibromyalgia N Kidney Disease N Heart Problems N Kidney or Bladder Problems N Thyroid Problems N GI Problems N Eating Disorder N Anemia Y Art (IVF or FET) N Psychiatric Illness N Ovarian Cancer N Diabetes N Pulmonary (TB, Asthma) N Hepatitis/Liver Disease N No Past Medical History N Eczema N Urinary Tract Infection N Abuse/Domestic Violence N Asthma N Trauma/Violence N Depression/ depression N Heart Disease N Pre-Eclampsia N Hypertension N Osteoporosis N Thrombophilias N Gynecological History Statement/Question Response Abnormal Pap N Flow Moderate Date of LMP 09/26/2022 STIs/STDs N HPV Vaccine Y Current Control Method BCPs Sexually Active? Y Menses Monthly N Age of first menstrual cycle 14 Date of Last Pap Smear 05/06/2022 Sexual Problems? Y LMP Approximate Obstetrics History GPAL:G 2 P 0 0 0 2 Type Value Living 2 Total 2 Past Encounters Encounter ID Performer Location Encounter Start Date Encounter Closed Date Diagnosis/Indication Diagnosis SNOMED-CT Code Diagnosis ICD10 Code Diagnosis Note [id number] NGO[facility]I [facility] [address] [address] 05/11/2022 09:40:19 05/11/2022 12:45:17 Contraception care management [id number] Z30.9 We agreed to switch to POP due to migraine with aura Discussed all control options in great detail. Pt would like to start POP. She is aware of the risks and benefits. She has contraindi cations to use of OCP or other estrogen containing hormonal therapy. Pt will start her pills on the first monday following the start of her period. She is aware it is not effective for control the first month. She is also aware of the importance of taking at the same time every day. Encouraged use of condoms as the pill does not protect against STD's. Will return in 3 months for med check. Consent was read and signed. Pt verbalized understand ing. Slynd samples given x 3 monthsRTC for med check in 3 months Abdominal pain 16167935 R10.9 Suspect pelvic floor muscle tenderness , we agreed to PFPT trialRefer ral sentSTI testing sentSuspec t GI cause contributi ng as well, GI referral sentRecord s release signed for recent pap / TVUS resultED precaution s discussedR TC for f/u in 3 months - if no improvemen t we discussed MD consult for further evaluation Time spent in visit is a total of 30 mins with at least 50% of visit consisting of counseling and review of plan of care. Dyspareunia [id number] N94 .10 Pain in pelvis 66800372 R10.2 [id number] NGO[facility]I [facility] [address],[place] [address] 09/01/2022 09:57:36 09/01/2022 11:03:56 Contraception care management [id number] Z30.9 Discussed not a candidate for estrogen containing BC due to migraine with auraReview ed all progestin only methods (POP, DMPA, IUD, Nexplanon vs non-hormon al options)Li ked slynd and did well while she was taking itHas already tried IUD, DMPA, and nexplanon beforeWe agreed to restart slyndSampl es given x 3 months - [id number], 4Rx sent to the pharmacyGI referral sent for irregular bowel movementsS he is going to call and schedule PFPTRTC for med check in 3 months Time spent in visit is a total of 25 mins with at least 50% of visit consisting of counseling and review of plan of care. Irregular bowel habits [id number] R19.4 [id number] NGO[facility] [address],[facility] [address] 10/26/2022 10:28:58 10/26/2022 11:17:33 Abnormal uterine bleeding [id number] 9100 N93.9 Discussed normal to have some spotting/B TB while starting a new BC, this should regulate out after 3-4 months of taking consistent lyWe discussed her pelvic pain, agreed to update TVUS. Likely GI component as well, encouraged her to make GI appointmen t and continue f/u with PCP on this.Recom mend pelvic floor physical therapy, as there is pelvic floor muscle tenderness present - referral has already been placed and she is encouraged to schedule thisSTI testing declinedpr ecautions discussedU PT (-)RTC for pelvic u/s and f/u Time spent in visit is a total of 22 mins with at least 50% of visit consisting of counseling and review of plan of care. Contracept ion care management [id number] Z30.9 Pain in pelvis 13362737 R10.2 Dyspareunia 57058757 N94 .10 [id number] Jacques Sibley MD [facility] [address],[place] [address] 10/28/2022 14:07:40 10/28/2022 15:02:45 Pain in pelvis 24592506 R10.2 N93.9 [id number] Nazia Bagley KEL [facility] [address],[place] [address] 10/31/2022 14:48:47 10/31/2022 15:25:46 Abdominal pain 35733043 R10.9 today we reviewed recent updated TVUS - normalhigh ly suspect GI cause of her symptoms due to irregular bowel movements, encouraged her to schedule appointmen t with GI. Referral has already been sent. Has made diet modificati ons and this seems to be helping.En couraged appointmen t for PFPT, number given for her to schedule.S he is happy on slynd and would like to continue, refills sentprecau tions discussed, RTC as needed Time spent in visit is a total of 20 mins with at least 50% of visit consisting of counseling and review of plan of care. Contracept ion care management [id number] Z30.9 [id number] NGO[facility]I [facility] [address],[place] [address] 11/24/2022 12:16:51 11/24/2022 12:46:15 Contraception care management [id number] Z30.9 NO CHARGE VISIT patient not due for a med checkdoing well and refills sent Health Concerns Section Related Observation LastModified by Organization Detai ls LastModified Time None Recorded Concern Status LastModified by Organization Details LastModified Time None Recorded Advance Directives Directive None Recorded Payers Encounter Date Sequence Insurance Name Policy Number Policy Oneill Covered Member ID Oneill Member ID Guarantor Name 09/01/2022 1 [facility] ON OR AFTER 12/24/20 (MEDICAID REPLACEMENT - HMO) Christine Naecker [id number] Christine Naecker 10/26/2022 1 [facility] ON OR AFTER 12/24/20 (MEDICAID REPLACEMENT - HMO) Christine Naecker [id number] Christine Naecker 10/28/2022 1 [facility] ON OR AFTER 12/24/20 (MEDICAID REPLACEMENT - HMO) Christine Naecker [id number] Christine Naecker 10/31/2022 1 [facility] ON OR AFTER 12/24/20 (MEDICAID REPLACEMENT - HMO) Christine Naecker [id number] Christine Naecker 11/24/2022 1 [facility] ON OR AFTER 12/24/20 (MEDICAID REPLACEMENT - HMO) Christine Naecker [id number] Christine Naecker Notes Date Note Type Note Provider Name and Address Organization Details Recorded Time 09/01/2022 text/html 27yoPresents for med checkTook slynd x 1 month. Did well, abdominal pain was gone while on the slynd. Stopped taking slynd because she forgot. Went and saw her PCP 1 month ago, who started her back on a combined OCP.Often forgets to take pillsBowel movements are still irregular, has not seen GI yet. Alternates between constipation and diarrheaMissed her appointment for PFPTHx of migraine with aura NGOZI Colon [address], [place], [address], [facility] 09/01/2022 10:47:58 10/26/2022 text/html 27yopresents for evaluation of irregular period and pelvic painstarted slynd 09/01/22, having random episodes of spotting since then. Pelvic pain continues, mostly of the left side. Cramping sensation that comes and goes.bowel movements continue to be irregular - has not scheduled with GI. Working with PCP on this and changing her diet which has helped.Missed appointment for PFPT and has not rescheduledno new partnersneg urinary symptomsneg n/v/f or flu-like symptomsneg flank painsneg vaginal d/c, odors, itching, irritation NGO[facility] [address], [place], [address], [facility] 10/26/2022 11:13:51 10/31/2022 text/html 27yo presents fo r pelvic u/s f/u 27yopresents for evaluation of irregular period and pelvic painstarted slynd 09/01/22, having random episodes of spotting since then. Pelvic pain continues, mostly of the left side. Cramping sensation that comes and goes.bowel movements continue to be irregular - has not scheduled with GI. Working with PCP on this and changing her diet which has helped.Missed appointment for PFPT and has not rescheduledno new partnersneg urinary symptomsneg n/v/f or flu-like symptomsneg flank painsneg vaginal d/c, odors, itching, irritation [facility] [address], [place], [address], [facility] 10/31/2022 15:23:31 OBGyn Episode Ob Episode Information Episode Created Date Number of Fetuses Patient Bloodtype Patient rh Status Prepregnancy Weight lbs Domestic Partner Domestic Partner Phone Father Name Gunnery/Ordnance Officer Status 05/11/20 22 1 CLOSED Fetus Data First Name Last Name Admitted to NICU Weight (g) Sex Living Outcome Pediatric Complications Fetus ID Race Codes Race Delivery Type 2778.25 1 M Prematur e [id number] Vaginal Delivery [place] Calculation Initial [place] Date Initial Exam Date Initial Exam Provider Initial Ultrasound Date Last Menstrual Period Date Ultra Sound Weeks Gestation 0 Eighteen To Twenty Week Israel Update Ultra Sound Date Fundal Height At Umbil Quickening Date Ultra Sound Latest Weeks Gestation Final [place] Confirmed By Final [place] Confirmed Date Final [place] Date Ultra Sound Latest Days Gestation 0 0 Menstrual History Last Menstrual Date Menses Monthly On Bcp Conception Prior Menses Frequency Hcg Plus Date Menarche Onset Age Delivery Information Delivery Date Delivery Type Labor Anesthesia Weeks Gestation Incision Type Labor Labor Length Hrs Delivered By Post Complications Tubal Sterilization Discharge Date Comments 4 36.5 Discharge Information Feeding Method Contraceptive Method Maternal HG B and HCT Levels Ob Episode Information Episode Created Date Number of Fetuses Patient Bloodtype Patient rh Status Prepregnancy Weight lbs Domestic Partner Domestic Partner Phone Father Name Gunnery/Ordnance Officer Status 05/11/20 22 1 CLOSED Fetus Data First Name Last Name Admitted to NICU Weight (g) Sex Living Outcome Pediatric Complications Fetus ID Race Codes Race Delivery Type 3685.43 5 M Full Term [id number] Vaginal Delivery [place] Calculation Initial [place] Date Initial Exam Date Initial Exam Provider Initial Ultrasound Date Last Menstrual Period Date Ultra Sound Weeks Gestation 0 Eighteen To Twenty Week Israel Update Ultra Sound Date Fundal Height At Umbil Quickening Date Ultra Sound Latest Weeks Gestation Final [place] Confirmed By Final [place] Confirmed Date Final [place] Date Ultra Sound Latest Days Gestation 0 0 Menstrual History Last Menstrual Date Menses Monthly On Bcp Conception Prior Menses Frequency Hcg Plus Date Menarche Onset Age Delivery Information Delivery Date Delivery Type Labor Anesthesia Weeks Gestation Incision Type Labor Labor Length Hrs Delivered By Post Complications Tubal Sterilization Discharge Date Comments 9 38 Discharge Information Feeding Method Contraceptive Method Maternal HG B and HCT Levels
== END 2024-11-26 12:39 | disposition home or self-care (01) ==
PROVIDERS: PCP Family Medicine; Visit Provider Registered Nurse
DX: R10.9 Unspecified abdominal pain (principal)
CPT/HCPCS: 76830; 76856